=== PATIENT | male | born 1950 | race Caucasian/White ===

== ENCOUNTER → 2016-03-28 | Outpatient (CLI) | payer BC ==
[~2016-03-28] MED LIST: ASPEC81 PO; ASPI-232 PO; ATOR10TA88 PO; CHOL2000 PO; CYAN1SUB12 PO; GLC/500 PO; GLY/5 PO; MCR5 PO; METO50TA7 PO; OMEP10CA2 PO; OMEP10CA4 PO; POTA10TA PO; VALS160T60 PO
[2016-03-28 13:27] LABS: ALT/SGPT 30 U/L (12-78); BLOOD UREA NITROGEN 17 mg/dl (7-18); BUN/CREATININE RATIO 15.4 (10-20); CARBON DIOXIDE 27 mmol/L (21-32); CHLORIDE 103 mmol/L (98-107); GLUCOSE 153 mg/dl (70-99); POTASSIUM 3.9 mmol/L (3.5-5.1); SODIUM 140 mmol/L (136-145)
[2016-03-28 13:29] LABS: ALB/GLOB RATIO 1.1 (0.9-2); ALKALINE PHOSPHATASE 34 U/L (45-117); AST/SGOT 20 U/L (15-37)
[2016-03-28 13:38] LABS: ESTIMATED AVERAGE GLUCOSE 166 mg/dl; HA1C FLAG Normal (Normal)
== END | disposition home or self-care (01) ==
LOC: C.LABPVFM 07:48
PROVIDERS: ATTEND Family Medicine
DX: I10 Essential (primary) hypertension (principal); E78.5 Hyperlipidemia, unspecified; E11.65 Type 2 diabetes mellitus with hyperglycemia; R10.9 Unspecified abdominal pain; K57.30 Diverticulosis of large intestine without perforation or abscess without bleeding

== ENCOUNTER 2016-07-14 08:40 | Observation (INO) | payer BC ==
[~2016-07-14] VITALS: Ht 175.3 cm; Wt 101.7 kg
[~2016-07-14 08:40] MED LIST changes: -ASPI-232 PO; +ATOR10TA82 PO; -ATOR10TA88 PO; -GLY/5 PO; -OMEP10CA4 PO; -POTA10TA PO
[2016-07-14] MEDS ORDERED: SODIUM CHLORIDE 0.9% 1000ML 1,000 ML IV STA ×3 (08:57→10:13)
--- NOTE | 2016-07-14 08:59 | EMERGENCY ROOM VISIT NOTE ---
History Report prepared by Ana: Jacky Kelley Under the Supervision of: Dr. Terry Bynum M.D. First contact with patient: 08:50 Chief Complaint: DIARRHEA Stated Complaint: VAZQUEZ, NAUSEA, CHILLS/COLD, DIARRHEA HX: DIABETES-223 Nursing Triage Summary: pt reports after eating ice cream from [employer] last evening + NVD all night and feeling " out of it " History of Present Illness The patient is a 66 year old male who presents to the Emergency Room with complaints of persistent diarrhea since last night. The patient has also been vomiting. He complains of headache and was having "delirious dreams." He denies cough, shortness of breath, urinary symptoms or blood in his stools. He is not currently nauseous. The patient had ice cream from [employer] last night prior to the onset of his symptoms. His also had ice cream from the dairy but she had a different flavor. The patient is diabetic and his BSG was 223 when he got up this morning. He notes that his blood pressure usually runs in the 120's systolically. The patient is not on any blood thinners other than baby aspirin. Source of History: patient Onset: last night Position: other (GI) Quality: other (diarrhea) Timing: other (persistent) Associated Symptoms: + headache, + vomiting, No SOB, No cough, No hematochezia, No melena, No urinary symptoms Review of Systems See HPI for pertinent positives & negatives. A total of 10 systems reviewed and were otherwise negative. Past Medical & Surgical Medical Problems: (1) Diarrhea (2) Type II diabetes mellitus Surgical Problems: (1) S/P appendectomy Family History Diabetes mellitus FHx: heart disease Hypertension Social History Smoking Status: Never Smoker Marital Status: Housing Status: lives with family Current/Historical Medications Scheduled Aspirin (Aspir-81), 1 TAB PO DAILY Atorvastatin (Lipitor), 10 MG PO HS Cholecalciferol (Vitamin D3), 1 CAP PO QAM Cyanocobalamin (Vitamin B-12), 2,500 MG PO Q2D Glyburide (Diabeta), 10 MG PO BID Metformin Hcl (Glucophage), 1,000 MG PO BID Metoprolol Succ (Toprol Xl) (Toprol-Xl), 50 MG PO QAM Omeprazole (Prilosec), 10 MG PO QAM Valsartan/Hctz (Diovan Hct 160MG/25MG), 1 TAB PO QAM Allergies Coded Allergies: No Known Allergies (Unverified , 07/14/16) Physical Exam Vital Signs Date Time Temp Pulse Resp B/P Pulse Ox O2 Delivery O2 Flow Rate FiO2 07/14/16 10:09 106 18 126/67 93 Room Air 07/14/16 08:46 37.1 118 20 149/82 98 Room Air Physical Exam GENERAL: Patient is dehydrated appearing in mild distress. HEENT: No acute trauma, normocephalic atraumatic, mucous membranes are dry, no nasal congestion, no scleral icterus. NECK: No stridor, no adenopathy, no meningismus, trachea is midline. LUNGS: No dyspnea. Clear to auscultation and equal bilaterally. No wheeze, no rhonchi. HEART: Tachycardic, regular rhythm. No murmurs, rubs, gallops appreciated. ABDOMEN: Soft, nontender, bowel sounds mildly hyperactive, no masses appreciated , no peritonitis. BACK: No midline tenderness, no CVA tenderness EXTREMITIES: Normal motion all extremities, no cyanosis, no edema. NEUROLOGIC: Alert and oriented, no acute motor or sensory deficits, no focal weakness, cranial nerves grossly intact. SKIN: No rash, no jaundice, no diaphoresis. Poor turgor. Medical Decision & Procedures ER Provider Diagnostic Interpretation: X ray results are stated below per my interpretation and the radiologist's interpretation. Radiology results and stated below per my review and radiologist interpretation: SINGLE VIEW CHEST CLINICAL HISTORY: Generalized weakness. Hypotension. FINDINGS: An AP, portable, upright chest radiograph is compared to study dated 04/30/2006 and correlated with chest CT dated 06/18/2006. The examination is degraded by portable technique and patient rotation. The heart is top normal for projection. The mediastinal contour is within normal limits. There is mild bibasilar atelectasis and elevation of the left hemidiaphragm. No airspace consolidation or large pleural effusion is seen. No pneumothorax is identified. The bony thorax is grossly intact. IMPRESSION: No acute cardiopulmonary abnormality. Electronically signed by: Frederick Caldera M.D. 07/14/2016 9:26 AM Dictated Date/Time: 07/14/2016 9:[address] SCAN OF THE BRAIN WITHOUT IV CONTRAST CLINICAL HISTORY: Headache. Change in mental status. COMPARISON STUDY: CT of the brain dated to. TECHNIQUE: Unenhanced axial CT scan of the brain is performed from the vertex to the skull base. CT DOSE: 687.98 mGy.cm FINDINGS: Brain parenchyma: There are age-related involutional changes noting minimal subcortical and periventricular microangiopathic change. There is no hemorrhage, mass effect, or evidence of acute territorial ischemia by CT criteria. Cade-white matter is preserved. No extra-axial fluid collection is seen. Ventricles, sulci, cisterns: Prominent secondary to involutional change. Intracranial vasculature: There is mild atherosclerotic calcification of the cavernous carotid and vertebral arteries. Calvarium: Unremarkable. Sinuses and mastoids: The visualized paranasal sinuses are clear. The mastoid air cells are well pneumatized. Orbits: The bony orbits are grossly intact. IMPRESSION: There is no hemorrhage, mass effect, or evidence of acute territorial ischemia by CT criteria. Electronically signed by: Frederick Caldera M.D. 07/14/2016 9:44 AM Dictated Date/Time: 07/14/2016 9:42 AM Laboratory Results 07/14/16 09:00 Red Blood Count 4.55, Mean Corpuscular Volume 93.6, Mean Corpuscular Hemoglobin 32.5, Mean Corpuscular Hemoglobin Concent 34.7, Mean Platelet Volume 10.9, Neutrophils (%) (Auto) 84.9, Lymphocytes (%) (Auto) 4.7, Monocytes (%) (Auto) 10.1, Eosinophils (%) (Auto) 0.0, Basophils (%) (Auto) 0.1, Neutrophils # (Auto ) 7.19, Lymphocytes # (Auto) 0.40, Monocytes # (Auto) 0.86, Eosinophils # (Auto ) 0.00, Basophils # (Auto) 0.01 07/14/16 09:00 Test 07/14/16 09:00 07/14/16 09:05 07/14/16 10:00 White Blood Count 8.48 K/uL (4.8-10.8) Red Blood Count 4.55 M/uL (4.7-6.1) Hemoglobin 14.8 g/dL (14.0-18.0) Hematocrit 42.6 % (42-52) Mean Corpuscular Volume 93.6 fL (80-100) Mean Corpuscular Hemoglobin 32.5 pg (25-34) Mean Corpuscular Hemoglobin Concent 34.7 g/dl (32-36) Platelet Count 152 K/uL (130-400) Mean Platelet Volume 10.9 fL (7.4-10.4) Neutrophils (%) (Auto) 84.9 % Lymphocytes (%) (Auto) 4.7 % Monocytes (%) (Auto) 10.1 % Eosinophils (%) (Auto) 0.0 % Basophils (%) (Auto) 0.1 % Neutrophils # (Auto) 7.19 K/uL (1.4-6.5) Lymphocytes # (Auto) 0.40 K/uL (1.2-3.4) Monocytes # (Auto) 0.86 K/uL (0.11-0.59) Eosinophils # (Auto) 0.00 K/uL (0-0.5) Basophils # (Auto) 0.01 K/uL (0-0.2) RDW Standard Deviation 44.7 fL (36.4-46.3) RDW Coefficient of Variation 13.1 % (11.5-14.5) Immature Granulocyte % (Auto) 0.2 % Immature Granulocyte # (Auto) 0.02 K/uL (0.00-0.02) Anion Gap 12.0 mmol/L (3-11) Est Creatinine Clear Calc Drug Dose 76.0 ml/min Estimated GFR () 80.1 Estimated GFR (Non- 69.1 BUN/Creatinine Ratio 12.2 (10-20) Calcium Level 8.4 mg/dl (8.5-10.1) Magnesium Level 1.6 mg/dl (1.8-2.4) Total Bilirubin 0.7 mg/dl (0.2-1) Direct Bilirubin 0.2 mg/dl (0-0.2) Aspartate Amino Transf (AST/SGOT) 28 U/L (15-37) Alanine Aminotransferase (ALT/SGPT) 51 U/L (12-78) Alkaline Phosphatase 39 U/L (45-117) Total Creatine Kinase 108 U/L (39-308) Troponin I < 0.015 ng/ml (0-0.045) C-Reactive Protein 4.53 mg/dl (0-0.29) Total Protein 8.1 gm/dl (6.4-8.2) Albumin 4.1 gm/dl (3.4-5.0) Lipase 195 U/L (73-393) Procalcitonin 0.17 ng/ml (0-0.5) Bedside Lactic Acid Venous 3.01 mmol/L (0.90-1.70) Urine Color YELLOW Urine Appearance CLEAR (CLEAR) Urine pH 5.0 (4.5-7.5) Urine Specific [place] 1.022 (1.000-1.030) Urine Protein NEG (NEG) Urine Glucose (UA) 1+ (NEG) Urine Ketones 1+ (NEG) Urine Occult Blood NEG (NEG) Urine Nitrite NEG (NEG) Urine Bilirubin NEG (NEG) Urine Urobilinogen NEG (NEG) Urine Leukocyte Esterase NEG (NEG) Urine WBC (Auto) 1-5 /hpf (0-5) Urine RBC (Auto) 0-4 /hpf (0-4) Urine Hyaline Casts (Auto) 1-5 /lpf (0-5) Urine Epithelial Cells (Auto) 10-20 /lpf (0-5) Urine Bacteria (Auto) NEG (NEG) Laboratory results as reviewed by me. Medications Administered Medications (Trade) Dose Ordered Sig/June Route Start Time Stop Time Status Last Admin Dose Admin Sodium Chloride 1,000 ml @ 999 mls/hr Q1H1M STAT IV 07/14/16 08:57 07/14/16 09:57 DC 07/14/16 08:57 999 MLS/HR Sodium Chloride 1,000 ml @ 999 mls/hr Q1H1M STAT IV 07/14/16 09:08 07/14/16 10:08 DC 07/14/16 09:08 999 MLS/HR Sodium Chloride (Nss 1000ml) 1,000 ml @ 250 mls/hr Q4H STAT IV 07/14/16 10:13 07/14/16 14:12 DC 07/14/16 10:24 250 MLS/HR Magnesium Sulfate (Magnesium Sulfate) 1 gm NOW STAT IV 07/14/16 10:48 07/14/16 11:45 DC 07/14/16 12:13 1 GM ECG Indication: tachycardia Rate (beats per minute): 113 Rhythm: sinus tachycardia Findings: no acute ischemic change, no ectopy ED Course 0855: The patient was evaluated in room B3b. A complete history and physical exam was performed. 0857: NSS 1000 ml @ 999 mls/hr. 0908: NSS 1000 ml @ 999 mls/hr. 1000: The patient is feeling better at this time. 1008: The patient still feels lightheaded. He is agreeable to staying in the hospital. 1013: NSS 1000 ml @ 250 mls/hr. 1031: Discussed the case with MIRANDA Layne Hospitalist. The patient will be evaluated. Medical Decision Differential: Viral, Bacterial, Parasitic, Iatrogenic, C-Diff, Malabsorption, Irritable Bowel Disease, IBS, Ischemic Bowel, amongst other pathologies entertained. 66 yr old male arrives with diarrhea, lightheadedness and fatigue. Tachycardic and moderately ill appearing and clearly dehydrated on arrival. Afebrile without WBC elevation. He does have elevated Lactic Acid. CRP modestly elevated. Procalcitonin on low side. I do not feel he is septic. I feel he is lactic acidosis for severe dehydration with diarrhea. He is persistently tachycardic after 2 L NSS though is feeling a bit better. With persistent tachycardia, lab findings and his examination I do not feel he is well enough for discharge, and family/pt agree he should stay. Consults Time Called: 1025 Consulting Physician: Discussed the case with MIRANDA Layne Hospitalist. Returned Call: 1031 The patient will be evaluated. Impression Primary Impression: Dehydration Additional Impressions: Lactic acidosis Tachycardia Diarrhea Scribe Attestation The scribe's documentation has been prepared under my direction and personally reviewed by me in its entirety. I confirm that the note above accurately reflects all work, treatment, procedures, and medical decision making performed by me. Departure Information Dispostion Being Evaluated By Hospitalist Referrals Jenny Long M.D. (PCP) Patient Instructions My [facility] Problem Qualifiers
[2016-07-14 09:21] LABS: BASO % 0.1 %; BASO ABS # 0.01 K/uL (0-0.2); COMPLETE YES; HEMATOCRIT 42.6 % (42-52); IG% 0.2 %; LYMPH % 4.7 %; MEAN CELL VOLUME 93.6 fL (80-100); MEAN CORPUSCULAR HEMOGLOBIN 32.5 pg (25-34); MEAN CORPUSCULAR HGB CONC 34.7 g/dl (32-36); MEAN PLATELET VOLUME 10.9 fL (7.4-10.4); MONO % 10.1 %; NEUT % 84.9 %; PLATELET COUNT 152 K/uL (130-400); RED BLOOD COUNT 4.55 M/uL (4.7-6.1); WHITE BLOOD COUNT 8.48 K/uL (4.8-10.8)
--- NOTE | 2016-07-14 09:28 | DIAGNOSTIC IMAGING REPORT ---
SINGLE VIEW CHEST CLINICAL HISTORY: Generalized weakness. Hypotension. FINDINGS: An AP, portable, upright chest radiograph is compared to study dated 04/30/2006 and correlated with chest CT dated 06/18/2006. The examination is degraded by portable technique and patient rotation. The heart is top normal for projection. The mediastinal contour is within normal limits. There is mild bibasilar atelectasis and elevation of the left hemidiaphragm. No airspace consolidation or large pleural effusion is seen. No pneumothorax is identified. The bony thorax is grossly intact. IMPRESSION: No acute cardiopulmonary abnormality. Electronically signed by: Frederick Caldera M.D. 07/14/2016 9:26 AM Dictated Date/Time: 07/14/2016 9:25 AM
[2016-07-14 09:36] LABS: ALT/SGPT 51 U/L (12-78); AST/SGOT 28 U/L (15-37); BLOOD UREA NITROGEN 13 mg/dl (7-18); BUN/CREATININE RATIO 12.2 (10-20); CALCIUM 8.4 mg/dl (8.5-10.1); CARBON DIOXIDE 25 mmol/L (21-32); CHLORIDE 100 mmol/L (98-107); GLUCOSE 206 mg/dl (70-99); MAGNESIUM 1.6 mg/dl (1.8-2.4); POTASSIUM 3.6 mmol/L (3.5-5.1); SODIUM 137 mmol/L (136-145)
[2016-07-14 09:39] LABS: ALKALINE PHOSPHATASE 39 U/L (45-117)
--- NOTE | 2016-07-14 09:46 | DIAGNOSTIC IMAGING REPORT ---
CT SCAN OF THE BRAIN WITHOUT IV CONTRAST CLINICAL HISTORY: Headache. Change in mental status. COMPARISON STUDY: CT of the brain dated to. TECHNIQUE: Unenhanced axial CT scan of the brain is performed from the vertex to the skull base. CT DOSE: 687.98 mGy.cm FINDINGS: Brain parenchyma: There are age-related involutional changes noting minimal subcortical and periventricular microangiopathic change. There is no hemorrhage, mass effect, or evidence of acute territorial ischemia by CT criteria. Cade-white matter is preserved. No extra-axial fluid collection is seen. Ventricles, sulci, cisterns: Prominent secondary to involutional change. Intracranial vasculature: There is mild atherosclerotic calcification of the cavernous carotid and vertebral arteries. Calvarium: Unremarkable. Sinuses and mastoids: The visualized paranasal sinuses are clear. The mastoid air cells are well pneumatized. Orbits: The bony orbits are grossly intact. IMPRESSION: There is no hemorrhage, mass effect, or evidence of acute territorial ischemia by CT criteria. Electronically signed by: Frdeerick Caldera M.D. 07/14/2016 9:44 AM Dictated Date/Time: 07/14/2016 9:42 AM
[2016-07-14] MEDS ORDERED: OMEP10CA4 PO (09:47)
[2016-07-14] MEDS ORDERED: ASPI-232 PO (09:47)
[2016-07-14] MEDS ORDERED: GLY/5 PO (09:47)
[2016-07-14 10:29] LABS: URINE APPEARANCE CLEAR (CLEAR); URINE BILIRUBIN NEG (NEG); URINE COLOR YELLOW; URINE NITRITE NEG (NEG); URINE SPECIFIC GRAVITY 1.022 (1.000-1.030); UROBILINOGEN NEG (NEG); ZZUR CULT IF INDIC CLEAN CATCH NO
[2016-07-14 10:35] LABS: MANUAL MICROSCOPIC REQUIRED? NO; REVIEW REQ? NO
[2016-07-14] MEDS ORDERED: MAGNESIUM SULFATE 1GM / D5W 1 GM BAG IV STA (10:48)
[2016-07-14] MEDS ORDERED: MAGNESIUM HYDROXIDE SUSP 30 ML UDC PO PRN (11:00)
[2016-07-14] MEDS ORDERED: GLUCOSE 40% GEL 15 GM TUBE PO PRN (11:00)
[2016-07-14] MEDS ORDERED: DEXTROSE 50% 50 ML SYR IV PRN (11:00)
[2016-07-14] MEDS ORDERED: GLUCOSE 10 TABS/TUBE PO PRN (11:00)
[2016-07-14] MEDS ORDERED: GLUCAGON FOR INJ 1 MG VIAL SQ PRN (11:00)
--- NOTE | 2016-07-14 11:04 | History and Physical ---
History & Physical Date & Time of Service: July 14, 2016 at 10:53 Chief Complaint: Pierre, Nausea, Chills/Cold, Diarrhea Hx: Diabetes-223 Primary Care Physician: Jenny Long M.D. History of Present Illness Source: patient 66 y/o M c/o n/d. Pt states he was having a usual day for himself yesterday. He felt quite well. He and his had been at the grocery and stopped for ice cream on their way home at [employer]. By the time pt was getting into the car he started having intense nausea with gagging but no emesis. By the time they were home he started to have "projectile" diarrhea which persisted all night. His said he felt warm, but no fever. She also said that he was hallucinating. Pt states that he had abd cramping with the diarrhea episodes, but no tyson abd pain. He could not get comfortable all night and barely slept. He feels very weak right now. No hx of similar GI issues. He takes a baby aspirin, but has not noted any blood in his stool. He started having a headache this AM. He has not been able to eat since onset of sx. He admits to feeling bloated. Pt's also had ice cream, but a different flavor. She has no GI issues. Pt is feeling a bit better s/p IVF in the ED, "about 15% better". Headache is still present. Nausea is improved, but still present. He is thirsty. Pt denies fever, SOB, chest pain, LE pain or swelling. ROS as noted above, otherwise neg. Past Medical/Surgical History Medical Problems: (1) Type II diabetes mellitus Status: Chronic Surgical Problems: (1) S/P appendectomy Status: Resolved HTN GERD--weaning off of PPI HLD Family History Family history was reviewed; no changes noted. Social History Smoking Status: Never Smoker Alcohol Use: none Drug Use: none Marital Status: Multi-Drug Resistant Organisms History of MDRO: No Allergies Coded Allergies: No Known Allergies (Unverified , 07/14/16) Home Medications Scheduled Aspirin (Aspir-81), 1 TAB PO DAILY Atorvastatin (Lipitor), 10 MG PO HS Cholecalciferol (Vitamin D3), 1 CAP PO QAM Cyanocobalamin (Vitamin B-12), 2,500 MG PO Q2D Glyburide (Diabeta), 10 MG PO BID Metformin Hcl (Glucophage), 1,000 MG PO BID Metoprolol Succ (Toprol Xl) (Toprol-Xl), 50 MG PO QAM Omeprazole (Prilosec), 10 MG PO QAM Valsartan/Hctz (Diovan Hct 160MG/25MG), 1 TAB PO QAM Physical Exam Vital Signs Date Time Temp Pulse Resp B/P Pulse Ox O2 Delivery O2 Flow Rate FiO2 07/14/16 10:09 106 18 126/67 93 Room Air 07/14/16 08:46 37.1 118 20 149/82 98 Room Air General Appearance: no apparent distress, + obese Head: normocephalic, atraumatic Respiratory/Chest: normal breath sounds, no respiratory distress Cardiovascular: no edema, + tachycardia Abdomen/GI: non tender, soft, + distended Extremities/Musculoskelatal: no calf tenderness, no pedal edema Neurologic/Psych: alert, normal mood/affect Skin: normal color, warm/dry Diagnostics Laboratory Results Results Past 24 Hours Test 07/14/16 09:00 07/14/16 09:05 07/14/16 10:00 Range/Units White Blood Count 8.48 4.8-10.8 K/uL Red Blood Count 4.55 4.7-6.1 M/uL Hemoglobin 14.8 14.0-18.0 g/dL Hematocrit 42.6 42-52 % Mean Corpuscular Volume 93.6 80-100 fL Mean Corpuscular Hemoglobin 32.5 25-34 pg Mean Corpuscular Hemoglobin Concent 34.7 32-36 g/dl Platelet Count 152 130-400 K/uL Mean Platelet Volume 10.9 7.4-10.4 fL Neutrophils (%) (Auto) 84.9 % Lymphocytes (%) (Auto) 4.7 % Monocytes (%) (Auto) 10.1 % Eosinophils (%) (Auto) 0.0 % Basophils (%) (Auto) 0.1 % Neutrophils # (Auto) 7.19 1.4-6.5 K/uL Lymphocytes # (Auto) 0.40 1.2-3.4 K/uL Monocytes # (Auto) 0.86 0.11-0.59 K/uL Eosinophils # (Auto) 0.00 0-0.5 K/uL Basophils # (Auto) 0.01 0-0.2 K/uL RDW Standard Deviation 44.7 36.4-46.3 fL RDW Coefficient of Variation 13.1 11.5-14.5 % Immature Granulocyte % (Auto) 0.2 % Immature Granulocyte # (Auto) 0.02 0.00-0.02 K/uL Sodium Level 137 136-145 mmol/L Potassium Level 3.6 3.5-5.1 mmol/L Chloride Level 100 98-107 mmol/L Carbon Dioxide Level 25 21-32 mmol/L Anion Gap 12.0 3-11 mmol/L Blood Urea Nitrogen 13 7-18 mg/dl Creatinine 1.10 0.60-1.40 mg/dl Est Creatinine Clear Calc Drug Dose 76.0 ml/min Estimated GFR () 80.1 Estimated GFR (Non- 69.1 BUN/Creatinine Ratio 12.2 10-20 Random Glucose 206 70-99 mg/dl Calcium Level 8.4 8.5-10.1 mg/dl Magnesium Level 1.6 1.8-2.4 mg/dl Total Bilirubin 0.7 0.2-1 mg/dl Direct Bilirubin 0.2 0-0.2 mg/dl Aspartate Amino Transf (AST/SGOT) 28 15-37 U/L Alanine Aminotransferase (ALT/SGPT) 51 12-78 U/L Alkaline Phosphatase 39 45-117 U/L Total Creatine Kinase 108 39-308 U/L Troponin I < 0.015 0-0.045 ng/ml C-Reactive Protein 4.53 0-0.29 mg/dl Total Protein 8.1 6.4-8.2 gm/dl Albumin 4.1 3.4-5.0 gm/dl Lipase 195 73-393 U/L Procalcitonin 0.17 0-0.5 ng/ml Bedside Lactic Acid Venous 3.01 0.90-1.70 mmol/L Urine Color YELLOW Urine Appearance CLEAR CLEAR Urine pH 5.0 4.5-7.5 Urine Specific [place] 1.022 1.000-1.030 Urine Protein NEG NEG Urine Glucose (UA) 1+ NEG Urine Ketones 1+ NEG Urine Occult Blood NEG NEG Urine Nitrite NEG NEG Urine Bilirubin NEG NEG Urine Urobilinogen NEG NEG Urine Leukocyte Esterase NEG NEG Urine WBC (Auto) 1-5 0-5 /hpf Urine RBC (Auto) 0-4 0-4 /hpf Urine Hyaline Casts (Auto) 1-5 0-5 /lpf Urine Epithelial Cells (Auto) 10-20 0-5 /lpf Urine Bacteria (Auto) NEG NEG Microbiology Results 07/14/16 Blood Culture, Received Pending 07/14/16 Blood Culture, Received Pending Diagnostic Radiology CT head neg for acute CXR normal Impression Assessment and Plan 66 y/o M who was admitted for observation for diarrhea, dehydration diarrhea, dehydration: Likely acute viral GE due to food born pathogen given onset and timing Tachycardia has improved s/p IVF but still borderline in the low 100s WBC WNL, afebrile, BP is stable PRP WNL, Mg is low c/w diarrheal illness Stool and blood cx pending Tele monitoring given tachycardia Will hold on abx for now given likely viral illness Lactic acid elevated, repeat pending HypoMg: replace IV and monitor DM: Holding PO meds given decreased PO intake SSI PRN BS elevated in setting of missing AM meds, A1c pending HTN: BP stable, continue home meds Other: Full code Avoid rx DVT proph to avoid GIB given diarrhea, avoid SCDs to allow pt to be able to get to bedside commode quickly, likely short duration of stay Full liquid diet as tolerated Level of Care Telemetry Resuscitation Status FULL RESUSCITATION VTE Prophylaxis VTE Risk Assessment Done? Y/N: Yes Risk Level: Low
[2016-07-14] MEDS: ONDANSETRON INJ 2 MG/ML 2 ML VIAL IV PRN ×2 (12:14→21:40)
[2016-07-14] MEDS: ACETAMINOPHEN 325 MG TAB PO PRN ×3 (12:48→21:41)
[2016-07-14] MEDS ORDERED: IV FLUIDS COMPLETED PRN (14:00)
[2016-07-14 14:40] VITALS: BP 149/78; PULSE 104; TEMP 37.8; O2SAT 93; Ht 175.3 cm; Wt 101.7 kg
[2016-07-14] MEDS: SODIUM CHLORIDE 0.9% 1000ML 1,000 ML IV SCH ×2 (15:31→20:56)
[2016-07-14 16:00] VITALS: O2SAT 93
[2016-07-14] MEDS: INSULIN ASPART 100 UNITS/ML 3 ML PEN SC SCH ×2 (17:28→20:55)
[2016-07-14 17:31] VITALS: TEMP 36.8; O2SAT 93
[2016-07-14 18:23] LABS: BUN/CREATININE RATIO 10.4 (10-20); CALCIUM 7.3 mg/dl (8.5-10.1); CREATININE 1.1 mg/dl (0.60-1.40); MAGNESIUM 1.8 mg/dl (1.8-2.4); POTASSIUM 3.2 mmol/L (3.5-5.1)
[2016-07-14 19:47] VITALS: BP 150/75; PULSE 102; TEMP 36.6; O2SAT 94
[2016-07-14 20:00] VITALS: O2SAT 93
[2016-07-14] MEDS ORDERED: ATORVASTATIN 10 MG TAB PO SCH (21:00)
[2016-07-15] VITALS (9 sets, daily range): BP systolic 106–165; BP diastolic 65–80; PULSE 74–101; TEMP 36.6–37; O2SAT 92–95
[2016-07-15] MEDS: SODIUM CHLORIDE 0.9% 1000ML 1,000 ML IV SCH (06:39)
[2016-07-15 07:40] LABS: BUN/CREATININE RATIO 10.8 (10-20); CALCIUM 6.9 mg/dl (8.5-10.1); MAGNESIUM 1.9 mg/dl (1.8-2.4); POTASSIUM 3.1 mmol/L (3.5-5.1)
[2016-07-15] MEDS: INSULIN ASPART 100 UNITS/ML 3 ML PEN SC SCH ×3 (08:24→16:30)
[2016-07-15] MEDS: ACETAMINOPHEN 325 MG TAB PO PRN (08:26)
[2016-07-15] MEDS ORDERED: PANTOprazole SOD 40 MG TAB PO SCH (09:00)
[2016-07-15] MEDS ORDERED: CHOLECALCIFEROL 1000 INTER.UNIT TAB PO SCH (09:00)
[2016-07-15] MEDS ORDERED: HYDROCHLOROTHIAZIDE 25 MG TAB PO SCH (09:00)
[2016-07-15] MEDS ORDERED: VALSARTAN 80 MG TAB PO SCH (09:00)
[2016-07-15] MEDS ORDERED: METOPROLOL SUCC 50MG EXT REL TAB PO SCH (09:00)
[2016-07-15] MEDS ORDERED: CYANOCOBALAMIN 2,500 MCG SUBL TAB PO SCH (09:00)
[2016-07-15] MEDS ORDERED: ASPIRIN 81 MG ECTAB PO SCH (09:00)
[2016-07-15] MEDS ORDERED: POTASSIUM CHLORIDE 20 MEQ TABCR PO SCH (09:00)
[2016-07-15] MEDS ORDERED: POTASSIUM CHLORIDE INJ 20 MEQ in SODIUM CHLORIDE 0.9% 1000ML 1,000 ML IV SCH (09:30)
[2016-07-15] MEDS ORDERED: POTA10TA PO (18:18)
--- NOTE | 2016-07-15 18:32 | Discharge Instructions ---
Discharge Instructions Date of Service July 15, 2016. Admission Reason for Admission: Diarrhea Discharge Discharge Diagnosis / Problem: gastroenteritis - either "food poisoning" or due to a virus Discharge Goals Goal(s): Decrease discomfort, Learn about illness, Diagnostic testing, Therapeutic intervention Activity Recommendations Activity Limitations: as noted below For the next 2-3 days please "take it easy" - that is, avoid heavy exertional activity such as working in the yard, heavy painter and decorator apprentice, etc. . Instructions / Follow-Up Instructions / Follow-Up From Dr. Gifford - 1. diarrhea, nausea, stomach upset - * this was either due to food poisoning from the ice cream you ingested OR a virus; bacterial infection is possible but less likely * your c. diff stool test was negative and to date a bacterial stool culture is also negative * we will call you if any of your stool tests come back positive for bacteria * I would avoid use of pepto-bismal OR immodium for the diarrhea as this might make your symptoms worsen 2. drink plenty of fluids over the next 2-3 days 3. diet - * for the next 24-36 hours please follow a "full liquids" diet * full liquids includes all clear liquids (jello, juice, water, gatorade, etc) as well as milk products (avoid cheese) * cream-based soups are also ok * after 24-36 hours you may begin to add in more solid foods such as toast, applesauce, rice, boiled chicken, soft/bland foods, etc * try to restrict caffeinated beverages (soda, tea, coffee) and alcohol for the next 3-4 days 4. diabetes - * you can resume your metformin TOMORROW morning with your breakfast * until your diet is back to normal please HOLD your glyburide; once back to normal diet you can resume the glyburide 5. high blood pressure - * please take a HALF tablet of your diovan-HCT on Saturday AM, 07/16/16 * if your diet is back to normal on Saturday/Saturday you may resume a FULL tablet of diovan-HCT at that time 6. low potassium - * start potassium supplement 10meq once daily on Saturday AM, 07/16/16 * please have your family doctor (Dr. Long) recheck your potassium and magnesium levels later this week * you may have to take a potassium supplement indefinitely due to your diovan- HCT use 7. special precautions - * until your diarrhea is fully resolved please pay special attention to strict hand-washing after using the toilet * clean your bathroom with bleach or bleach wipes * try to use a separate bathroom from your spouse until your symptoms are resolved Return to [facility] if - * you develop blood or mucous in your stool * you develop severe abdominal pain or cramps * you are unable to eat/drink/keep liquids down * you develop recurrent fevers of 100.5 or more * you are dizzy or lightheaded Follow-up Appointment - * Please see Dr. Long later this week Current Hospital Diet Patient's current hospital diet: Full Liquid Diet, Diabetes Type 2 Diet Discharge Diet Recommended Diet: Full Liquid Diet, Diabetes Type 2 Diet Procedures Procedures Performed: CAT scan of the head - no evidence of bleeding, stroke, etc. Pending Studies Studies pending at discharge: yes List of pending studies: stool culture for bacteria Laboratory Results Hemoglobin A1c Test 07/15/16 06:44 Range/Units Medical Emergencies . Who to Call and When: Medical Emergencies: If at any time you feel your situation is an emergency, please call 911 immediately. . Non-Emergent Contact Non-Emergency issues call your: Primary Care Provider Call Non-Emergent contact if: temperature is above 100.5, your pain is not controlled, your pain is worsening, your pain is unusual for you, your pain is concerning you, you have any medication questions . . "Provider Documentation" section prepared by Gucci Gifford. . VTE Core Measure Inpt VTE Proph given/why not?: SCD's
[2016-07-15 18:44] LABS: BUN/CREATININE RATIO 9.9 (10-20); CREATININE 0.95 mg/dl (0.60-1.40)
[2016-07-15 18:45] LABS: POTASSIUM 3.7 mmol/L (3.5-5.1)
[2016-07-16 07:26] LABS: ESTIMATED AVERAGE GLUCOSE 169 mg/dl; HA1C FLAG Normal (Normal)
--- NOTE | 2016-07-16 11:30 | Discharge Summary ---
Discharge Summary Date of Service July 16, 2016. Discharge Summary Admission Date: July 14, 2016 at 10:52 Discharge Date: July 15, 2016 Discharge Disposition: Home Principal Diagnosis: gastroenteritis Problems/Secondary Diagnoses: HTN T2DM Hypokalemia - resolved Hypomagnesemia - resolved Lactic acidosis 2nd to severe dehydration - resolved Hyperlipidemia Procedures: Head CT - negative for ICH, stroke, etc. Medication Reconciliation New Medications: Potassium Chloride (K-Tabs) 10 Meq Tab 10 MEQ PO DAILY, #30 TAB 0 Refills Continued Medications: Aspirin (Aspir-81) 81 Mg Tab 1 TAB PO DAILY for 30 Days, #30 TAB 5 Refills Atorvastatin (Lipitor) 10 Mg Tab 10 MG PO HS, TAB Cholecalciferol (Vitamin D3) 2,000 Unit Cap 1 CAP PO QAM, CAP 3 Refills Cyanocobalamin (Vitamin B-12) 2,500 Mcg Sub 2500 MG PO Q2D Metformin Hcl (Glucophage) 500 Mg Tab 1000 MG PO BID, TAB Metoprolol Succ (Toprol Xl) (Toprol-Xl) 50 Mg Tabcr 50 MG PO QAM, TAB Omeprazole (Prilosec) 10 Mg Cap 10 MG PO QAM, CAP Valsartan/Hctz (Diovan Hct 160MG/25MG) 1 Tab Tab 1 TAB PO QAM, TAB Discontinued Medications: Glyburide (Diabeta) 5 Mg Tab 10 MG PO BID, TAB Discharge Exam Physical Exam: General Appearance: no apparent distress ENT: pharynx normal Neck: no JVD Respiratory/Chest: lungs clear, no respiratory distress, no accessory muscle use Cardiovascular: regular rate, rhythm, no gallop, no murmur, normal peripheral pulses Abdomen / GI: non tender, soft, no organomegaly, + abnormal bowel sounds ( hyperactive) Extremities: no pedal edema Neurologic/Psychiatric: alert, oriented x 3 Hospital Course HISTORY OF PRESENT ILLNESS: 66yo male with T2DM & HTN who presented with nausea, dry heaves, and copious diarrhea. Patient states he was having a usual day for himself yesterday. He felt quite well. He and his had been at the grocery and stopped for ice cream on their way home at [employer]. By the time pt was getting into the car he started having intense nausea with gagging but no emesis. By the time they were home he started to have "projectile" diarrhea which persisted all night. His said he felt warm, but no fever. She also said that he was hallucinating. Pt states that he had abd cramping with the diarrhea episodes, but no tyson abd pain. He could not get comfortable all night and barely slept. He feels very weak right now. No hx of similar GI issues. He takes a baby aspirin, but has not noted any blood in his stool. He started having a headache this AM. He has not been able to eat since onset of sx. He admits to feeling bloated. Pt's also had ice cream, but a different flavor. She has no GI issues. Patient is feeling a bit better s/p IVF in the ED, "about 15% better". Headache is still present. Nausea is improved, but still present. He is thirsty. HOSPITAL COURSE: The patient was given supportive care measures including IV hydration and replacement of electrolyte disturbances. He was ultimately restarted on a liquid diet and tolerated this without difficulty. C. diff toxin was negative, and stool culture along with blood cultures remained negative while here. His diarrhea improved in frequency and consistency prior to discharge home. It is suspected that the etiology of his gastroenteritis was either toxin- induced (ie food poisoning) vs a viral process. Either way it is anticipated that his symptoms will resolve without intervention. At discharge the following were recommended: 1. full liquid diet for another 1-2 days, followed by gradual increase in diet thereafter as tolerated 2. plenty of fluids 3. HOLDING of his glyburide until his diet is back to normal 4. resumption of metformin within 24 hours of discharge given his stable creatinine 5. HALF of his normal diovan-HCT dose for another 1-2 days, then resuming full dose thereafter 6. potassium supplementation 10meq once daily, possibly indefinitely, due to chronic use of HCTZ He should have repeat chemistries at time of hospital follow-up. Total Time Spent: Greater than 30 minutes This includes examination of the patient, discharge planning, medication reconciliation, and communication with other providers. Discharge Instructions Please refer to the electronic Patient Visit Report (Discharge Instructions) for additional information. Follow-Up see Dr. Long within 3-5 days Additional Copies To Jenny Long M.D.
== END 2016-07-15 19:38 | disposition home or self-care (01) ==
LOC: ENRESERVTM → ENRESERVDT → C.EDB 08:42 → C.MED 10:52
PROVIDERS: ADMIT Family Medicine; ATTEND Internal Medicine
DX: E86.0 Dehydration (principal); E87.2 Acidosis; K52.9 Noninfective gastroenteritis and colitis, unspecified; K21.9 Gastro-esophageal reflux disease without esophagitis; I10 Essential (primary) hypertension; E11.9 Type 2 diabetes mellitus without complications; E87.6 Hypokalemia; E83.42 Hypomagnesemia; E78.5 Hyperlipidemia, unspecified; Z79.82 Long term (current) use of aspirin; Z90.49 Acquired absence of other specified parts of digestive tract; Z82.49 Family history of ischemic heart disease and other diseases of the circulatory system; Z83.3 Family history of diabetes mellitus

== ENCOUNTER → 2016-07-20 | Outpatient (CLI) | payer BC ==
[~2016-07-20] MED LIST changes: -ASPEC81 PO; +ASPI-232 PO; -MCR5 PO; -OMEP10CA2 PO; +OMEP10CA4 PO; +POTA10TA PO
[2016-07-20 12:49] LABS: ALT/SGPT 39 U/L (12-78); AST/SGOT 24 U/L (15-37); BLOOD UREA NITROGEN 12 mg/dl (7-18); BUN/CREATININE RATIO 11.8 (10-20); CALCIUM 9.3 mg/dl (8.5-10.1); CARBON DIOXIDE 32 mmol/L (21-32); CHLORIDE 105 mmol/L (98-107); GLUCOSE 154 mg/dl (70-99); POTASSIUM 4.1 mmol/L (3.5-5.1); SODIUM 143 mmol/L (136-145)
[2016-07-20 12:52] LABS: ALB/GLOB RATIO 0.9 (0.9-2); ALKALINE PHOSPHATASE 33 U/L (45-117); CHOLESTEROL 76 mg/dl (0-200); CHOLESTEROL/HDL RATIO 2.4; ESTIMATED AVERAGE GLUCOSE 171 mg/dl; HA1C FLAG Normal (Normal); HDL CHOLESTEROL 32 mg/dl; LDL CHOLESTEROL CALCULATED 12 mg/dl; TRIGLYCERIDES 162 mg/dl (0-150); VERY LOW DENSITY LIPOPROT CALC 32 mg/dl
== END | disposition home or self-care (01) ==
LOC: C.LABPVFM 08:08
PROVIDERS: ATTEND Family Medicine
DX: I10 Essential (primary) hypertension (principal); E11.9 Type 2 diabetes mellitus without complications; E66.9 Obesity, unspecified; E78.5 Hyperlipidemia, unspecified; E83.42 Hypomagnesemia

== ENCOUNTER → 2016-10-05 | Outpatient (CLI) | payer BC ==
[~2016-10-05] MED LIST changes: -ATOR10TA82 PO; +ATOR10TA88 PO
[2016-10-05 13:01] LABS: ALT/SGPT 38 U/L (12-78); AST/SGOT 24 U/L (15-37); BLOOD UREA NITROGEN 15 mg/dl (7-18); BUN/CREATININE RATIO 15.3 (10-20); CALCIUM 9.1 mg/dl (8.5-10.1); CARBON DIOXIDE 29 mmol/L (21-32); CHLORIDE 104 mmol/L (98-107); GLUCOSE 170 mg/dl (70-99); POTASSIUM 4.1 mmol/L (3.5-5.1); SODIUM 139 mmol/L (136-145)
[2016-10-05 13:03] LABS: ALB/GLOB RATIO 1.2 (0.9-2); ALKALINE PHOSPHATASE 31 U/L (45-117)
== END | disposition home or self-care (01) ==
LOC: C.LABPVFM 07:36
PROVIDERS: ATTEND Family Medicine
DX: I10 Essential (primary) hypertension (principal); K52.9 Noninfective gastroenteritis and colitis, unspecified; E11.65 Type 2 diabetes mellitus with hyperglycemia; E87.6 Hypokalemia

== ENCOUNTER → 2017-01-15 | Outpatient (CLI) | payer BC ==
[~2017-01-15] MED LIST changes: +ATOR10TA82 PO; -ATOR10TA88 PO
[2017-01-15 13:40] LABS: ESTIMATED AVERAGE GLUCOSE 166 mg/dl; HA1C FLAG Normal (Normal)
[2017-01-15 14:14] LABS: ALT/SGPT 43 U/L (12-78); BLOOD UREA NITROGEN 17 mg/dl (7-18); CALCIUM 9.8 mg/dl (8.5-10.1); CARBON DIOXIDE 27 mmol/L (21-32); CHLORIDE 101 mmol/L (98-107); CREATININE 1.12 mg/dl (0.60-1.40); GLUCOSE 182 mg/dl (70-99); POTASSIUM 4.1 mmol/L (3.5-5.1); SODIUM 137 mmol/L (136-145)
[2017-01-15 14:17] LABS: ALB/GLOB RATIO 1.1 (0.9-2); ALKALINE PHOSPHATASE 36 U/L (45-117); AST/SGOT 28 U/L (15-37)
== END | disposition home or self-care (01) ==
LOC: C.LABPVFM 07:37
PROVIDERS: ATTEND Family Medicine
DX: E11.65 Type 2 diabetes mellitus with hyperglycemia (principal)

== ENCOUNTER → 2017-05-06 | Outpatient (CLI) | payer BC ==
[~2017-05-06] MED LIST changes: -METO50TA7 PO; +METO50TA8 PO
[2017-05-06 13:21] LABS: HEMOGLOBIN A1C 7.5 % (4.5-5.6)
[2017-05-06 14:09] LABS: ALBUMIN 3.9 gm/dl (3.4-5.0); ALT/SGPT 43 U/L (12-78); AST/SGOT 27 U/L (15-37); BLOOD UREA NITROGEN 16 mg/dl (7-18); CARBON DIOXIDE 26 mmol/L (21-32); CHOLESTEROL 119 mg/dl (0-200); CREATININE 1.06 mg/dl (0.60-1.40); GLUCOSE 168 mg/dl (70-99); POTASSIUM 3.9 mmol/L (3.5-5.1); SODIUM 139 mmol/L (136-145)
[2017-05-06 14:12] LABS: ALKALINE PHOSPHATASE 36 U/L (45-117); LDL CHOLESTEROL CALCULATED 27 mg/dl; TOTAL PROTEIN 7.5 gm/dl (6.4-8.2)
== END | disposition home or self-care (01) ==
LOC: C.LABPVFM 07:48
PROVIDERS: ATTEND Family Medicine
DX: I10 Essential (primary) hypertension (principal); E11.65 Type 2 diabetes mellitus with hyperglycemia; T14.8XXA Other injury of unspecified body region, initial encounter; X58.XXXA Exposure to other specified factors, initial encounter; M54.2 Cervicalgia

== ENCOUNTER → 2017-05-28 | Outpatient (CLI) | payer BC ==
--- NOTE | 2017-05-28 12:41 | DIAGNOSTIC IMAGING REPORT ---
ABDOMEN COMPLETE (US) CLINICAL HISTORY: 67 years-old Male presenting with ABDOMINAL DISCOMFORT. TECHNIQUE: Real-time grayscale and limited color Doppler ultrasound imaging of the abdomen was performed. COMPARISON: 01/12/2013. FINDINGS: Pancreas: Largely obscured due to overlying bowel gas. Liver: Markedly hyperechogenic parenchyma with obscuration of the right hemidiaphragm, likely indicating marked hepatic steatosis. The liver measures 21.2 cm in maximal sagittal dimension. No sonographic evidence of hepatic mass. Main portal vein patent with normal directional flow. Biliary: No intrahepatic biliary ductal dilatation. Common bile duct measures up to 5 mm in diameter. Gallbladder: No evidence of gallstones, gallbladder wall thickening, gallbladder distention, or pericholecystic fluid or inflammatory change. Spleen: Normal in echogenicity and size, measuring 11.4 cm in length. Kidneys: Normal in size and echogenicity. Right kidney measures 11.6 cm, and left kidney measures 11.3 cm. No hydronephrosis. Vasculature: Visualized portions of the IVC and abdominal aorta normal. No evidence of abdominal aortic aneurysm. Ascites: None. IMPRESSION: Hepatic steatosis and hepatomegaly. Correlate with liver function tests to exclude steatohepatitis as a cause for abdominal pain. Electronically signed by: Job Barrios M.D. 05/28/2017 12:39 PM Dictated Date/Time: 05/28/2017 12:38 PM
== END | disposition home or self-care (01) ==
LOC: C.ULTR 11:54
PROVIDERS: ATTEND Family Medicine
DX: R10.9 Unspecified abdominal pain (principal); K76.0 Fatty (change of) liver, not elsewhere classified; R16.0 Hepatomegaly, not elsewhere classified

== ENCOUNTER → 2017-06-03 | Outpatient (CLI) | payer BC ==
--- NOTE | 2017-06-03 11:19 | DIAGNOSTIC IMAGING REPORT ---
CHEST 2 VIEWS ROUTINE CLINICAL HISTORY: R91.1 Pulmonary nodule, [id number] nodule COMPARISON STUDY: 07/14/2016 FINDINGS: Mild stable cardiomegaly. Diaphragms are smooth. Lungs are considered clear. No significant pulmonary nodule IMPRESSION: Negative chest. The above report was generated using voice recognition software. It may contain grammatical, syntax or spelling errors. Electronically signed by: Ricco Espion M.D. 06/03/2017 11:18 AM Dictated Date/Time: 06/03/2017 11:16 AM
== END | disposition home or self-care (01) ==
LOC: C.RAD1850 11:06
PROVIDERS: ATTEND Physician Assistant
DX: R91.1 Solitary pulmonary nodule (principal)

== ENCOUNTER 2020-01-19 14:33 | Observation (INO) ==
[2020-01-19] MEDS ORDERED: SODIUM CHLORIDE 0.9% 1000ML 1,000 ML IV ONE (15:03)
--- NOTE | 2020-01-19 15:14 | Emergency Department Note ---
History of Present Illness General Chief complaint: Neck Injury/Pain Stated complaint: TROUBLE SWALLOWING,EARACHE,FEVER Time Seen by Provider: 01/19/20 14:48 History of Present Illness Maximum Pain Intensity: 6 69-year-old male who presents to the emergency department for evaluation of neck pain, fullness, difficulty swallowing, bilateral earache and low-grade fever. The patient reports that he underwent a thyroid needle biopsy last Saturday by Dr. Gill at [facility]. The patient reports that he did have some discomfort and Saturday. It started to worsen Saturday into Saturday to the point that he was unable to swallow yesterday. He has also noticed some lupe n radiating to both ears, as well as a mild headache. The patient reports that his temperature has been ranging between 98.6 and 99.5 F. The patient reports that the pain is "from outside pushing in - not pain from the inside of the neck or throat." The patient has noticed some mild lower neck swelling that is mildly tender to palpation, but soft and pliable. He currently denies any dental pain, recent upper respiratory infections, cough or sore throat. The patient denies any pain radiating into the chest, or shortness of breath. The patient did take some ibuprofen 2 hours prior to arrival, and currently rates his discomfort a 6 out of 10. Home Medications Medication Instructions Recorded Confirmed Type metoprolol succinate 50 mg See Rx Instructions .ROUTE 10/29/18 08/04/19 Rx tablet,extended release 24 hr .COMPLEX #90 tablet losartan 100 mg tablet 100 mg PO DAILY #90 tab 11/10/18 08/04/19 Rx aspirin 81 mg tablet,delayed 81 mg PO DAILY tab 11/25/18 08/04/19 History release indomethacin 25 mg capsule 25 mg PO TID PRN #30 cap 11/25/18 08/04/19 History pen needle, diabetic 32 gauge x See Rx Instructions .ROUTE 12/29/18 08/04/19 Rx 5/32" .COMPLEX #100 unspecified lancets #100 ea 12/30/18 08/04/19 Rx metformin 500 mg tablet,extended See Rx Instructions .ROUTE 02/20/19 08/04/19 Rx release 24 hr .COMPLEX #360 tablet CPAP Machine #1 ea 04/23/19 08/04/19 Rx cholecalciferol (vitamin D3) 50 2,000 units PO DAILY 04/23/19 08/04/19 History mcg (2,000 unit) capsule chlorthalidone 25 mg tablet 25 mg PO DAILY #90 tab 04/24/19 08/04/19 Rx glipizide 10 mg tablet, extended 10 mg PO BID #60 tab 05/11/19 08/04/19 Rx release 24 hr atorvastatin 10 mg tablet 10 mg PO DAILY #90 tab 06/22/19 08/04/19 Rx prednisone 50 mg tablet 50 mg PO DAILY #5 tab 08/04/19 08/04/19 Rx insulin glargine U-300 conc 300 See Rx Instructions .ROUTE 08/10/19 Rx unit/mL (1.5 mL) subcutaneous pen .COMPLEX #4.5 milliliter omeprazole 20 mg capsule,delayed 20 mg PO DAILY #90 cap 08/10/19 Rx release hydrocodone-acetaminophen [Ashton] 1 tab PO Q6H PRN #12 tab 10/15/19 Rx blood sugar diagnostic #300 ea 11/05/19 Rx Allergies Allergy/AdvReac Type Severity Reaction Status Date / Time No Known Allergies Allergy Verified 08/04/19 15:04 Past Med/Surg History Medical History Benign hypertension Diarrhea Ribs, multiple fractures Sleep apnea Type II diabetes mellitus Surgical History History of surgery on arm LT arm; detached tendon S/P appendectomy Family History Other No pertinent family history Denies family history of Ovarian cancer Prostate cancer Myocardial infarction Breast cancer Colorectal cancer Social History Smoking Status: Never smoker Hx Alcohol Use: Yes Hx Substance Use: No marital status: Current Living Situation: Spouse current occupational status: retired Feels Safe at Home: Yes Dental Care, Regularly: Yes Physical Activity Frequency: Does not Exercise Seatbelt Use: always Sunscreen Use: Yes Review of Systems 10 system review was performed and was negative except for pertinent positives and negatives as indicated in history of present illness Physical Exam Vital Signs Vital Signs - 24 hr 01/19/20 14:35 01/19/20 15:52 Temperature 37.1 C Temperature Source Oral Pulse Rate 92 H Pulse Rate [Apical] 86 Respiratory Rate 18 20 Respiratory Effort / Characteristics Non-Labored Respiratory Depth Normal Blood Pressure 156/82 H Blood Pressure Mean 106 Pulse Oximetry 96 95 Oxygen Delivery Method Room Air Sepsis Recent Fever Within 48 Hours No Sepsis New/Unexplained Change in Mental Status No Sepsis Action Taken by Nursing No Action Required CONSTITUTIONAL: Healthy and well nourished. Patient does not appear in any acute distress on exam. HEENT: Normocephalic, atraumatic. Pupils equal, round and reactive. No subconjunctival hemorrhage, hemotympanum, TM bulging/erythema or rhinorrhea. Examination of the oropharynx does not show any posterior pharyngeal erythema, tonsillar hypertrophy or evidence for Ludewig's angina. NECK: Examination shows mild fullness over the left lower anterior neck region. No ecchymosis appreciated. The biopsy site does not show evidence for erythema. There is no induration within the anterior soft tissue. LYMPHATICS: No cervical chain adenopathy. RESPIRATORY: Clear to auscultation bilaterally with no wheezing, crackles, rhonchi or stridor. CARDIOVASCULAR: Regular rate and rhythm with no murmurs, rubs or gallops. GASTROINTESTINAL: Bowel sounds present in all quadrants. No epigastric tenderness to palpation. MUSCULOSKELETAL: Patient has no tenderness to palpation over the anterior chest wall. INTEGUMENTARY: No rash or other significant dermatologic conditions noted. HEMATOLOGIC: No ecchymosis or petechiae. PSYCHIATRIC: Positive affect. NEUROLOGIC: No focal neurologic deficits noted. Course Course Patient history and physical exam were performed. Nurses notes were reviewed. Vital signs were reviewed, showing a mildly elevated blood pressure of 156/82. The patient is currently afebrile and not tachycardic. I did explain to the patient that the best imaging to evaluate the neck soft tissue is a CT with IV contrast. The patient has had both a CT and MRI with IV contrast in the past without any issues. IV access was established, and labs were drawn. The patient refused any analgesics. Review of labs shows an elevated white count, sed rate and CRP. Patient is mildly hyponatremic at 135. Creatinine is 1.54, w ith a glucose of 148. CT of the neck with IV contrast is concerning for a liquefied hematoma extending from the thyroid nodule into the superior mediastinum and retrosternal region. With this collection of fluid, patient subjective increase of temperature as well as beta white count and inflammatory markers, infectious etiology became more concerning. The patient was ordered Zosyn 4.5 g IV infusion. Findings were discussed with the patient. I did recommend contacting ENT for further guidance. The case was also discussed with Dr. Chavis, ED attending physician, who is in agreement with this plan. I had our community assistant try to contact Dr. Rincon, ENT physician prototype assembler electronics for Dr. Gill. While awaiting her return call, I also discussed the case with Dr. Mishra, general surgeon on-call, who indicated that the patient would be best managed by ENT. We still had not heard back from ENT at the change of shift. Patient care was transferred to HANNAH Chairez. Please see her dictation for further treatment and final disposition. Administered Medications Discontinued Medications Sodium Chloride (Nss 1000ml) 1,000 mls @ 999 mls/hr IV .Q1H1M ONE Stop: 01/19/20 16:03 Last Admin: 01/19/20 15:26 Dose: 999 mls/hr Documented by: [id number] Piperacillin Sod/Tazobactam Sod (Zosyn) 4.5 gm in 120 mls @ 240 mls/hr IV NOW ONE Stop: 01/19/20 17:18 Last Admin: 01/19/20 17:14 Dose: 240 mls/hr Documented by: [id number] Ioversol (Ioversol 100ml) 93 ml IV ONCE ONE Stop: 01/19/20 16:17 Last Admin: 01/19/20 16:16 Dose: 1 ml Documented by: [id number] Medical Decision Making Medical Records Attestation: I reviewed the patient's medical records. Home Medications Current Medication List: was personally reviewed by me Laboratory Data Attestation: I reviewed the patient's lab results. Result diagrams: 01/19/20 15:20 01/19/20 15:20 Lab Results 01/19/20 01/19/20 01/19/20 Range/Units 15:20 15:20 15:20 WBC 12.85 H (4.8-10.8) K/uL RBC 4.08 L (4.7-6.1) M/uL Hgb 13.3 L (14.0-18.0) g/dL Hct 39.0 L (42-52) % MCV 95.6 (80-100) fL MCH 32.6 (25-34) pg MCHC 34.1 (32-36) g/dL RDW Std Deviation 45.1 (36.4-46.3) fL RDW Coeff of Natalie 12.9 (11.5-14.5) % Plt Count 197 (130-400) K/uL MPV 10.7 H (7.4-10.4) fL Immature Gran % (Auto) 0.3 % Neut % (Auto) 77.7 % Lymph % (Auto) 8.9 % Shoshone % (Auto) 12.9 % Eos % (Auto) 0.0 % Baso % (Auto) 0.2 % Neut # (Auto) 9.98 H (1.4-6.5) K/uL Lymph # (Auto) 1.15 L (1.2-3.4) K/uL Shoshone # (Auto) 1.66 H (0.11-0.59) K/uL Eos # (Auto) 0.00 (0-0.5) K/uL Baso # (Auto) 0.02 (0-0.2) K/uL Immature Gran # (Auto) 0.04 H (0.00-0.02) K/uL ESR 52 H (0-14) mm/hr PT (9.0-12.0) Seconds INR (0.9-1.1) APTT (21.0-31.0) Seconds PTT Ratio Sodium 135 L (136-145) mmol/L Potassium 3.6 (3.5-5.1) mmol/L Chloride 102 (98-107) mmol/L Carbon Dioxide 24 (21-32) mmol/L Anion Gap 10.0 (3-11) BUN 21 H (7-18) mg/dl Creatinine 1.54 H (0.6-1.4) mg/dl Est Cr Clr Drug Dosing 50.9 ml/min Est GFR ( Amer) 52.2 Est GFR (Non-Af Amer) 45.0 BUN/Creatinine Ratio 13.9 (10-20) Glucose 148 H (70-99) mg/dl Calcium 9.3 (8.5-10.1) mg/dl Total Bilirubin 0.8 (0.2-1) mg/dl AST 18 (15-37) U/L ALT 21 (12-78) U/L Alkaline Phosphatase 39 L (45-117) U/L C-Reactive Protein 15.60 H (0-0.29) mg/dl Total Protein 8.0 (6.4-8.2) gm/dl Albumin 3.9 (3.4-5.0) gm/dl Globulin 4.1 H (2.5-4.0) gm/dl Albumin/Globulin Ratio 0.9 (0.9-2) 01/19/20 Range/Units 15:20 WBC (4.8-10.8) K/uL RBC (4.7-6.1) M/uL Hgb (14.0-18.0) g/dL Hct (42-52) % MCV (80-100) fL MCH (25-34) pg MCHC (32-36) g/dL RDW Std Deviation (36.4-46.3) fL RDW Coeff of Natalie (11.5-14.5) % Plt Count (130-400) K/uL MPV (7.4-10.4) fL Immature Gran % (Auto) % Neut % (Auto) % Lymph % (Auto) % Shoshone % (Auto) % Eos % (Auto) % Baso % (Auto) % Neut # (Auto) (1.4-6.5) K/uL Lymph # (Auto) (1.2-3.4) K/uL Shoshone # (Auto) (0.11-0.59) K/uL Eos # (Auto) (0-0.5) K/uL Baso # (Auto) (0-0.2) K/uL Immature Gran # (Auto) (0.00-0.02) K/uL ESR (0-14) mm/hr PT 11.9 (9.0-12.0) Seconds INR 1.1 (0.9-1.1) APTT 31.8 H (21.0-31.0) Seconds PTT Ratio 1.1 Sodium (136-145) mmol/L Potassium (3.5-5.1) mmol/L Chloride (98-107) mmol/L Carbon Dioxide (21-32) mmol/L Anion Gap (3-11) BUN (7-18) mg/dl Creatinine (0.6-1.4) mg/dl Est Cr Clr Drug Dosing ml/min Est GFR ( Amer) Est GFR (Non-Af Amer) BUN/Creatinine Ratio (10-20) Glucose (70-99) mg/dl Calcium (8.5-10.1) mg/dl Total Bilirubin (0.2-1) mg/dl AST (15-37) U/L ALT (12-78) U/L Alkaline Phosphatase (45-117) U/L C-Reactive Protein (0-0.29) mg/dl Total Protein (6.4-8.2) gm/dl Albumin (3.4-5.0) gm/dl Globulin (2.5-4.0) gm/dl Albumin/Globulin Ratio (0.9-2) Imaging Data Attestation: I personally reviewed and interpreted this imaging study as follows: My Impression: My interpretation of a CT with IV contrast of the neck does show fluid from around the thyroid, extending into the upper mediastinum and substernal region. Thyroid nodule is also noted. No soft tissue or tracheal/esophageal displacement appreciated. Radiologist report was also reviewed. Radiologist's Impression: [facility] [address], [id number] CT Scan Report Patient: SHREE SANTIAGO Date: 01/19/20#: [id number]: [facility] ID:[id number]: Date: 1950[facility] Zip: [place], [place] [address]Kqu: 69Location: EDSex: MRoom/Bed:Att Phy:Diagnosis: TROUBLE SWALLOWING,EARACHE,FEVERPri Phy: Haley Esteves MDService Date: 01/19/20Fa Phy:Interpreting Phy: True WileyAdmit Phy: Ordering Phy: Paxton Banda PA cc: ~ CT soft tissue neck w con HISTORY: 69 years-old Male Neck fullness s/p thyroid biopsy acute swelling of the neck status post thyroid biopsy COMPARISON: Chest CT 10/14/2019 TECHNIQUE: Multiple axial CT images of the soft tissues of the neck were obtained following the intravenous ministration of 93 mL Optiray 320. A dose lowering technique was used consistent with the principals of MAN. FINDINGS: The imaged intracranial structures appear unremarkable. Streak artifact from dental amalgam hardware. Patent airway. Large left inferior thyroid nodule measures 3.5 x 2.3 cm, slightly increased in size from 10/14/2019 study. A liquefying hematoma is noted surrounding the nodule which measures approximately 3.4 x 1.6 x 4.8 cm with ill-defined margins and extends into the upper mediastinum and retrosternal tissues. Prominent nonenlarged 7 mm lymph node of the right tracheoesophageal recess. No pathologically enlarged lymph nodes. The parotid and submandibular glands are unremarkable. Mild anterior neck subcutaneous edema. The lung apices are clear without pneumothorax. There is mild nonspecific wall thickening of the proximal esophagus. Vascular structures of the neck appear unremarkable. IMPRESSION: 1. 3.5 x 2.3 cm nodule of the inferior left thyroid lobe. 2. Organizing liquefied hematoma surrounds the nodule and extends into the superior mediastinum and retrosternal tissues as above. Superimposed infection cannot be excluded from imaging alone. Blood Pressure Blood Pressure Findings: Elevated blood pressure MDM Narrative 69-year-old male who presents to the emergency department with complaint of difficulty with swallowing. The patient underwent a thyroid biopsy last Saturday. It is noted that he did continue with aspirin [address] scan today is concerned about perioperative infection and bleed. Patient does have an elevated white count, CRP and sed rate. This is concerning for possible postoperative infection. Patient care will be directed as recommended by ENT. The patient may require transfer to [facility] if we do not hear back from local [facility] ENT. Impression & Plan Hematoma of neck, Postoperative hemorrhage Discharge Plan Visit Data Chief Complaint: Neck Injury/Pain Stated Complaint: TROUBLE SWALLOWING,EARACHE,FEVER ED Provider: Frederick Chavis ED Midlevel Provider: Paxton Banda Discharge Problem: Hematoma of neck, Postoperative hemorrhage Forms Stand Alone Forms: My [facility] Known Prescriptions Prescriptions: No Action metoprolol succinate 50 mg tablet extended release 24 hr See Rx Instructions .ROUTE .COMPLEX Qty: 90 RF: 3 losartan 100 mg tablet 100 mg PO DAILY Qty: 90 RF: 3 pen needle, diabetic [BD Ultra-Fine Patti Pen Needle] 32 gauge x 5/32" needle See Rx Instructions .ROUTE .COMPLEX Qty: 100 RF: 3 (DME) lancets [OneTouch UltraSoft Lancets] misc See Rx Instructions .ROUTE .MEDSUPPLY Qty: 100 RF: 2 metformin 500 mg tablet extended release 24 hr See Rx Instructions .ROUTE .COMPLEX Qty: 360 RF: 3 chlorthalidone 25 mg tablet 25 mg PO DAILY Qty: 90 RF: 1 glipizide 10 mg tablet extended release 24hr 10 mg PO BID Qty: 60 RF: 5 atorvastatin 10 mg tablet 10 mg PO DAILY Qty: 90 RF: 1 omeprazole 20 mg capsule,delayed release(DR/EC) 20 mg PO DAILY Qty: 90 RF: 1 Toujeo SoloStar U-300 Insulin 300 unit/mL (1.5 mL) insulin pen See Rx Instructions .ROUTE .COMPLEX Qty: 4.5 RF: 5 (DME) OneTouch Ultra Blue Test Strip Strip See Dose Instructions .ROUTE .MEDSUPPLY Qty: 300 RF: 1 aspirin 81 mg tablet,delayed release (DR/EC) 81 mg PO DAILY RF: 0 indomethacin 25 mg capsule 25 mg PO TID PRN (Reason: gout) Qty: 30 RF: 0 prednisone 50 mg tablet 50 mg PO DAILY Qty: 5 RF: 0 cholecalciferol (vitamin D3) 50 mcg (2,000 unit) capsule 2,000 units PO DAILY RF: 0 (DME) CPAP Machine Misc See Rx Instructions .ROUTE .MEDSUPPLY Qty: 1 RF: 0 hydrocodone-acetaminophen [Ashton] 5-325 mg tablet 1 tab PO Q6H PRN (Reason: pain) Qty: 12 RF: 0
[2020-01-19 15:33] LABS: Basophils # (auto) 0.02 K/uL (0-0.2); Basophils % (auto) 0.2 %; Hemoglobin 13.3 g/dL (14.0-18.0); Immature Granulocytes # (auto) 0.04 K/uL (0.00-0.02); Immature Granulocytes % (auto) 0.3 %; Lymphocytes # (auto) 1.15 K/uL (1.2-3.4); Lymphocytes % (auto) 8.9 %; Mean Corpuscular Hemoglobin 32.6 pg (25-34); Mean Corpuscular Hgb Conc 34.1 g/dL (32-36); Mean Corpuscular Volume 95.6 fL (80-100); Mean Platelet Volume 10.7 fL (7.4-10.4); Monocytes # (auto) 1.66 K/uL (0.11-0.59); Monocytes % (auto) 12.9 %; Neutrophils # (auto) 9.98 K/uL (1.4-6.5); Neutrophils % (auto) 77.7 %; Platelet Count 197 K/uL (130-400); RDW Coefficient of Variation 12.9 % (11.5-14.5); RDW Standard Deviation 45.1 fL (36.4-46.3); Red Blood Count 4.08 M/uL (4.7-6.1); White Blood Count 12.85 K/uL (4.8-10.8)
[2020-01-19 15:50] LABS: INR 1.1 (0.9-1.1); Partial Thromboplastin Ratio 1.1; Partial Thromboplastin Time 31.8 Seconds (21.0-31.0); Prothrombin Time 11.9 Seconds (9.0-12.0)
[2020-01-19 15:59] LABS: Albumin Level 3.9 gm/dl (3.4-5.0); BUN Creatinine Ratio 13.9 (10-20); C Reactive Protein 15.6 mg/dl (0-0.29); Calcium 9.3 mg/dl (8.5-10.1); Creatinine Clr Calc Pharmacy 50.9 ml/min; Est GFR (African American) 52.2; Potassium 3.6 mmol/L (3.5-5.1)
[2020-01-19 16:02] LABS: Albumin Globulin Ratio 0.9 (0.9-2); Bilirubin,Total 0.8 mg/dl (0.2-1); Globulin 4.1 gm/dl (2.5-4.0)
[2020-01-19] MEDS ORDERED: OPTIRAY 320 100ml IV ONE (16:16)
--- NOTE | 2020-01-19 16:34 | CT Scan Report ---
CT soft tissue neck w con HISTORY: 69 years-old Male Neck fullness s/p thyroid biopsy acute swelling of the neck status post t hyroid biopsy COMPARISON: Chest CT 10/14/2019 TECHNIQUE: Multiple axial CT images of the soft tissues of the neck were obtained following the intra venous ministration of 93 mL Optiray 320. A dose lowering technique was used consistent with the prin cipals of ALA. FINDINGS: The imaged intracranial structures appear unremarkable. Streak artifact from dental amalgam hardware. Patent airway. Large left inferior thyroid nodule measures 3.5 x 2.3 cm, slightly increased in size from 10/14/2019 study. A liquefying hematoma is noted surrounding the nodule which measures approximat kera 3.4 x 1.6 x 4.8 cm with ill-defined margins and extends into the upper mediastinum and retrostern al tissues. Prominent nonenlarged 7 mm lymph node of the right tracheoesophageal recess. No pathologi dann enlarged lymph nodes. The parotid and submandibular glands are unremarkable. Mild anterior neck subcutaneous edema. The lung apices are clear without pneumothorax. There is mild nonspecific wall t hickening of the proximal esophagus. Vascular structures of the neck appear unremarkable. IMPRESSION: 1. 3.5 x 2.3 cm nodule of the inferior left thyroid lobe. 2. Organizing liquefied hematoma surrounds the nodule and extends into the superior mediastinum and r etrosternal tissues as above. Superimposed infection cannot be excluded from imaging alone. ACT 112: Negative or not required by law. The above report was generated using voice recognition software. It may contain grammatical, syntax o r spelling errors. Electronically signed by: Cali Wiley M.D. 01/19/2020 4:33 PM
[2020-01-19] MEDS ORDERED: PIPERACILLIN/TAZOBACTAM 4.5 GM/120 ML BAG IV ONE (16:49)
[2020-01-19] MEDS ORDERED: PIPERACILL/TAZOBAC CONSULT ACTIVE PRN (16:49)
--- NOTE | 2020-01-19 17:15 | Emergency Department Note ---
ED Visit Note Patient was seen by our PA/TERMINAL CLERK. I was involved in the patient's care and did evaluate the patient myself. I was involved in the care throughout the ER stay. The patient presents with neck discomfort. He just had a procedure on the anterior neck. He appears to have a hematoma by CT imaging. His airway was patent. He was not toxic or febrile. He was not hypoxic. He did have a slight white count elevation. Antibiotics have been ordered. We will attempt to get in contact with the ENT specialist who performed the procedure or possibly the specialist covering for the group. The patient will likely require hospitalization. He may require transfer to a tertiary center. The decision between admission at our facility and transfer will depend on the advice of the on-call center dispatcher. .
--- NOTE | 2020-01-19 17:35 | Emergency Department Note ---
Impression & Plan Hematoma of neck, Postoperative hemorrhage ED Provider Note I received sign out from Erich Banda PA-C at 1720 change of shift. The patient presented with progressive worsening pain and swelling in his neck and pain with swallowing s/p thyroid nodule biopsy [address] imaging showed a large fluid collection concerning for a liquefied hematoma versus possible infection. The patient does have a leukocytosis but has been afebrile, nontoxic-appearing and stable. I spoke on the phone with Dr. Alves, ENT, who recommended admitting the patient to the medicine service for IV antibiotics and he is happy and available to consult on the patient if needed. I spoke with Marita Siddiqui PA-C with [facility], who agrees to evaluate the patient for admission. Dr. Drake will admit the patient. Spoke with the patient and updated him on plan for admission for IV antibiotics, he was agreeable to this plan. The patient was in no distress, resting calmly i n the stretcher, breathing comfortably. He was stable at time of admission. The chart was completed utilizing [employer] Speech voice recognition software. Grammatical errors, random word insertions, pronoun errors, and incomplete sentences are an occasional consequence of this system due to software limitations, ambient noise, and hardware issues. Any formal questions or concerns about the content, text, or information contained within the body of this dictation should be directly addressed to the nurse practitioner for clarification. Past Med/Surg History Medical History Diabetes mellitus, type II HLD (hyperlipidemia) HTN (hypertension) MARY on CPAP Surgical History History of surgery on arm LT arm; detached tendon S/P appendectomy S/P thyroid biopsy Family History Other AAA (abdominal aortic aneurysm) Denies family history of Ovarian cancer Prostate cancer Myocardial infarction Breast cancer Colorectal cancer Social History Smoking Status: Never smoker Hx Alcohol Use: No Hx Substance Use: No Preferred Language: Polish Communication Ability: Effective Chestnut Tanner Required: No Beliefs That Will Affect Care: None marital status: Current Living Situation: Spouse current occupational status: retired Other Information That Helps Us Care for You: No Feels Safe at Home: Yes Safety Concerns: Feels Safe At This Time Dental Care, Regularly: Yes Physical Activity Frequency: Does not Exercise Seatbelt Use: always Sunscreen Use: Yes Assistive Devices: None Allergies Allergies Allergy/AdvReac Type Severity Reaction Status Date / Time No Known Allergies Allergy Verified 01/19/20 19:35 Home Meds Home Medications Medication Instructions Recorded Confirmed aspirin 81 mg tablet,delayed 81 mg PO DAILY tab 11/25/18 01/19/20 release indomethacin 25 mg capsule 25 mg PO TID PRN #30 cap 11/25/18 01/19/20 acetaminophen [Tylenol Extra 1,000 mg PO Q6H PRN 01/19/20 01/19/20 Strength] atorvastatin 10 mg PO QAM 01/19/20 01/19/20 glipizide 15 mg PO BID 01/19/20 01/19/20 ibuprofen [Advil] 400 mg PO Q6H PRN 01/19/20 01/19/20 insulin glargine U-300 conc 32 unit SUBCUT QPM 01/19/20 01/19/20 [Toujeo SoloStar U-300 Insulin] metformin 1,000 mg PO .BID BUT ON HOLD 01/19/20 01/19/20 metoprolol succinate 50 mg PO DAILY 01/19/20 01/19/20 omeprazole 20 mg PO MOWEFR 01/19/20 01/19/20 Previous Rx's Medication Instructions Recorded losartan 100 mg tablet 100 mg PO DAILY #90 tab 11/10/18 pen needle, diabetic 32 gauge x See Rx Instructions .ROUTE 12/29/18 532" .COMPLEX #100 unspecified lancets #100 ea 12/30/18 CPAP Machine #1 ea 04/23/19 chlorthalidone 25 mg tablet 25 mg PO DAILY #90 tab 04/24/19 blood sugar diagnostic #300 ea 11/05/19 Results & Data (ED) Vital Signs Vital Signs - 24 hr 01/19/20 18:47 Pulse Rate [Apical] 70 Respiratory Rate 18 Blood Pressure [Left Arm] 128/59 L Blood Pressure Mean [Left Arm] 82 Pulse Oximetry 99 Laboratory Data Result diagrams: 01/20/20 17:02 01/20/20 17:02 Lab Results 01/19/20 01/19/20 01/19/20 Range/Units 15:20 15:20 15:20 WBC 12.85 H (4.8-10.8) K/uL RBC 4.08 L (4.7-6.1) M/uL Hgb 13.3 L (14.0-18.0) g/dL Hct 39.0 L (42-52) % MCV 95.6 (80-100) fL MCH 32.6 (25-34) pg MCHC 34.1 (32-36) g/dL RDW Std Deviation 45.1 (36.4-46.3) fL RDW Coeff of Natalie 12.9 (11.5-14.5) % Plt Count 197 (130-400) K/uL MPV 10.7 H (7.4-10.4) fL Immature Gran % (Auto) 0.3 % Neut % (Auto) 77.7 % Lymph % (Auto) 8.9 % [place] % (Auto) 12.9 % Eos % (Auto) 0.0 % Baso % (Auto) 0.2 % Neut # (Auto) 9.98 H (1.4-6.5) K/uL Lymph # (Auto) 1.15 L (1.2-3.4) K/uL [place] # (Auto) 1.66 H (0.11-0.59) K/uL Eos # (Auto) 0.00 (0-0.5) K/uL Baso # (Auto) 0.02 (0-0.2) K/uL Immature Gran # (Auto) 0.04 H (0.00-0.02) K/uL ESR 52 H (0-14) mm/hr PT (9.0-12.0) Seconds INR (0.9-1.1) APTT (21.0-31.0) Seconds PTT Ratio Sodium 135 L (136-145) mmol/L Potassium 3.6 (3.5-5.1) mmol/L Chloride 102 (98-107) mmol/L Carbon Dioxide 24 (21-32) mmol/L Anion Gap 10.0 (3-11) BUN 21 H (7-18) mg/dl Creatinine 1.54 H (0.6-1.4) mg/dl Est Cr Clr Drug Dosing 50.9 ml/min Est GFR ( Amer) 52.2 Est GFR (Non-Af Amer) 45.0 BUN/Creatinine Ratio 13.9 (10-20) Glucose 148 H (70-99) mg/dl Calcium 9.3 (8.5-10.1) mg/dl Total Bilirubin 0.8 (0.2-1) mg/dl AST 18 (15-37) U/L ALT 21 (12-78) U/L Alkaline Phosphatase 39 L (45-117) U/L C-Reactive Protein 15.60 H (0-0.29) mg/dl Total Protein 8.0 (6.4-8.2) gm/dl Albumin 3.9 (3.4-5.0) gm/dl Globulin 4.1 H (2.5-4.0) gm/dl Albumin/Globulin Ratio 0.9 (0.9-2) Procalcitonin (0-0.5) ng/ml Hepatitis C Ab Screen (Neg) SARS-CoV-2 Ag (Rapid) (Negative) 01/19/20 01/19/20 01/19/20 Range/Units 15:20 15:20 15:20 WBC (4.8-10.8) K/uL RBC (4.7-6.1) M/uL Hgb (14.0-18.0) g/dL Hct (42-52) % MCV (80-100) fL MCH (25-34) pg MCHC (32-36) g/dL RDW Std Deviation (36.4-46.3) fL RDW Coeff of Natalie (11.5-14.5) % Plt Count (130-400) K/uL MPV (7.4-10.4) fL Immature Gran % (Auto) % Neut % (Auto) % Lymph % (Auto) % [place] % (Auto) % Eos % (Auto) % Baso % (Auto) % Neut # (Auto) (1.4-6.5) K/uL Lymph # (Auto) (1.2-3.4) K/uL [place] # (Auto) (0.11-0.59) K/uL Eos # (Auto) (0-0.5) K/uL Baso # (Auto) (0-0.2) K/uL Immature Gran # (Auto) (0.00-0.02) K/uL ESR (0-14) mm/hr PT 11.9 (9.0-12.0) Seconds INR 1.1 (0.9-1.1) APTT 31.8 H (21.0-31.0) Seconds PTT Ratio 1.1 Sodium (136-145) mmol/L Potassium (3.5-5.1) mmol/L Chloride (98-107) mmol/L Carbon Dioxide (21-32) mmol/L Anion Gap (3-11) BUN (7-18) mg/dl Creatinine (0.6-1.4) mg/dl Est Cr Clr Drug Dosing ml/min Est GFR ( Amer) Est GFR (Non-Af Amer) BUN/Creatinine Ratio (10-20) Glucose (70-99) mg/dl Calcium (8.5-10.1) mg/dl Total Bilirubin (0.2-1) mg/dl AST (15-37) U/L ALT (12-78) U/L Alkaline Phosphatase (45-117) U/L C-Reactive Protein (0-0.29) mg/dl Total Protein (6.4-8.2) gm/dl Albumin (3.4-5.0) gm/dl Globulin (2.5-4.0) gm/dl Albumin/Globulin Ratio (0.9-2) Procalcitonin 0.20 (0-0.5) ng/ml Hepatitis C Ab Screen Neg (Neg) SARS-CoV-2 Ag (Rapid) (Negative) 01/19/20 Range/Units 18:47 WBC (4.8-10.8) K/uL RBC (4.7-6.1) M/uL Hgb (14.0-18.0) g/dL Hct (42-52) % MCV (80-100) fL MCH (25-34) pg MCHC (32-36) g/dL RDW Std Deviation (36.4-46.3) fL RDW Coeff of Natalie (11.5-14.5) % Plt Count (130-400) K/uL MPV (7.4-10.4) fL Immature Gran % (Auto) % Neut % (Auto) % Lymph % (Auto) % [place] % (Auto) % Eos % (Auto) % Baso % (Auto) % Neut # (Auto) (1.4-6.5) K/uL Lymph # (Auto) (1.2-3.4) K/uL [place] # (Auto) (0.11-0.59) K/uL Eos # (Auto) (0-0.5) K/uL Baso # (Auto) (0-0.2) K/uL Immature Gran # (Auto) (0.00-0.02) K/uL ESR (0-14) mm/hr PT (9.0-12.0) Seconds INR (0.9-1.1) APTT (21.0-31.0) Seconds PTT Ratio Sodium (136-145) mmol/L Potassium (3.5-5.1) mmol/L Chloride (98-107) mmol/L Carbon Dioxide (21-32) mmol/L Anion Gap (3-11) BUN (7-18) mg/dl Creatinine (0.6-1.4) mg/dl Est Cr Clr Drug Dosing ml/min Est GFR ( Amer) Est GFR (Non-Af Amer) BUN/Creatinine Ratio (10-20) Glucose (70-99) mg/dl Calcium (8.5-10.1) mg/dl Total Bilirubin (0.2-1) mg/dl AST (15-37) U/L ALT (12-78) U/L Alkaline Phosphatase (45-117) U/L C-Reactive Protein (0-0.29) mg/dl Total Protein (6.4-8.2) gm/dl Albumin (3.4-5.0) gm/dl Globulin (2.5-4.0) gm/dl Albumin/Globulin Ratio (0.9-2) Procalcitonin (0-0.5) ng/ml Hepatitis C Ab Screen (Neg) SARS-CoV-2 Ag (Rapid) Negative (Negative) Administered Medications Acetaminophen (Acetaminophen 325 Mg Tab) 650 mg PO Q4H PRN PRN Reason: Pain or Fever Stop: 02/18/20 23:51 Last Admin: 01/20/20 15:48 Dose: 650 mg Documented by: [id number] Admin: 01/20/20 09:20 Dose: 650 mg Documented by: [id number] Admin: 01/20/20 00:12 Dose: 650 mg Documented by: [id number] Atorvastatin Calcium (Atorvastatin 10 Mg Tab) 10 mg PO QAM [facility] Stop: 02/19/20 08:59 Last Admin: 01/20/20 09:05 Dose: 10 mg Documented by: [id number] Piperacillin Sod/Tazobactam (Sod 3.375 gm/ Dextrose) 115 mls @ 28.75 mls/hr IV Q8H [facility]OB; Protocol Stop: 01/30/20 13:59 Last Infusion: 01/20/20 18:13 Dose: 0 mls/hr Documented by: [id number] Admin: 01/20/20 13:52 Dose: 28.8 mls/hr Documented by: [id number] Sodium Chloride (Nss 1000ml) 1,000 mls @ 125 mls/hr IV .Q8H [facility] Stop: 02/19/20 08:59 Last Infusion: 01/20/20 17:12 Dose: 125 mls/hr Documented by: [id number] Admin: 01/20/20 09:08 Dose: 80 mls/hr Documented by: [id number] Daptomycin 300 mg/ Syringe 6 mls @ 3 mls/min IV Q24H BOB; Protocol Stop: 01/27/20 17:59 Last Admin: 01/20/20 18:12 Dose: 3 mls/min Documented by: [id number] Insulin Aspart (Insulin Aspart 100 Units/Ml 3 Ml Pen) 0 units SC ACHS [facility] Stop: 02/18/20 20:59 Last Admin: 01/20/20 17:12 Dose: Not Given Documented by: [id number] Cosigned by: [id number] Admin: 01/20/20 12:16 Dose: 2 units Documented by: [id number] Cosigned by: [id number] Admin: 01/20/20 09:04 Dose: 2 units Documented by: [id number] Cosigned by: [id number] Admin: 01/19/20 21:37 Dose: Not Given Documented by: [id number] Cosigned by: [id number] Insulin Glargine (Insulin Glargine Solostar 100 Units/Ml 3 Ml Pen) 0 units SC BID [facility] Stop: 02/18/20 20:59 Last Admin: 01/20/20 09:03 Dose: 10 units Documented by: [id number] Cosigned by: [id number] Admin: 01/19/20 21:39 Dose: 10 units Documented by: [id number] Cosigned by: [id number] Metoprolol Succinate (Metoprolol Succ 50mg Ext Rel Tab) 50 mg PO DAILY [facility] Stop: 02/19/20 08:59 Last Admin: 01/20/20 09:05 Dose: 50 mg Documented by: [id number] Pantoprazole Sodium (Pantoprazole 40 Mg Tab) 40 mg PO MOWEFR [facility] Stop: 02/19/20 08:59 Last Admin: 01/20/20 09:05 Dose: 40 mg Documented by: [id number] Discontinued Medications Sodium Chloride (Nss 1000ml) 1,000 mls @ 999 mls/hr IV .Q1H1M ONE Stop: 01/19/20 16:03 Last Infusion: 01/19/20 18:28 Dose: 0 mls/hr Documented by: [id number] Admin: 01/19/20 15:26 Dose: 999 mls/hr Documented by: [id number] Piperacillin Sod/Tazobactam Sod (Zosyn) 4.5 gm in 120 mls @ 240 mls/hr IV NOW ONE Stop: 01/19/20 17:18 Last Infusion: 01/19/20 18:28 Dose: 0 mls/hr Documented by: [id number] Admin: 01/19/20 17:14 Dose: 240 mls/hr Documented by: [id number] Sodium Chloride (Nss 1000ml) 1,000 mls @ 100 mls/hr IV .Q10H [facility] Stop: 01/20/20 06:30 Last Infusion: 01/20/20 05:40 Dose: 0 mls/hr Documented by: [id number] Admin: 01/19/20 20:47 Dose: 100 mls/hr Documented by: [id number] Piperacillin Sod/Tazobactam (Sod 4.5 gm/ Dextrose) 120 mls @ 200 mls/hr IV ONE ONE; Protocol Stop: 01/20/20 08:35 Last Infusion: 01/20/20 10:00 Dose: 0 mls/hr Documented by: [id number] Admin: 01/20/20 09:02 Dose: 200 mls/hr Documented by: [id number] Ioversol (Ioversol 100ml) 93 ml IV ONCE ONE Stop: 01/19/20 16:17 Last Admin: 01/19/20 16:16 Dose: 1 ml Documented by: [id number] Discharge Plan Visit Data Chief Complaint: Neck Injury/Pain Stated Complaint: TROUBLE SWALLOWING,EARACHE,FEVER ED Provider: Frederick Chavis ED Midlevel Provider: Randi Galvin Discharge Problem: Hematoma of neck, Postoperative hemorrhage Patient Disposition: Admitted As Inpatient Discharge Instructions Interventions: ED Discharge Assessment Last Done: 01/19/20 20:20
--- NOTE | 2020-01-19 18:30 | Communication Note ---
Date of Service: January 19, 2020 HISTORY: Record reviewed. Patient interviewed and examined. Care coordinated with Marita Siddiqui PA-C. Please refer to her documentation for complete history. Briefly, 69 YO male with history of hypertension, DM type 2, sleep apnea, and other problems. Ultrasound-guided biopsy of thyroid nodule performed by Dr. Alves on 01/13/20. Since the procedure, the patient has developed progressive discomfort in his neck and difficulty swallowing. Able to swallow saliva. Rare cough, no SOB. Low grade temp at home. He came to the ED for further evaluation. EXAM: General- no distress Neck- mild swelling and tenderness anterior neck; no stridor Lungs- clear to auscultation; no respiratory distress Cardiovascular- RRR; no murmur; no gallop; no JVD; no pretibial edema Abdomen- + bowel sounds, soft, nontender Extremities- no cyanosis; no calf tenderness Neuro- alert, oriented Skin- warm & dry DATA: 01/19/20 15:20 01/19/20 15:[address] SOFT TISSUE NECK FINDINGS: The imaged intracranial structures appear unremarkable. Streak artifact from dental amalgam hardware. Patent airway. Large left inferior thyroid nodule measures 3.5 x 2.3 cm, slightly increased in size from 10/14/2019 study. A liquefying hematoma is noted surrounding the nodule which measures approximately 3.4 x 1.6 x 4.8 cm with ill-defined margins and extends into the upper mediastinum and retrosternal tissues. Prominent nonenlarged 7 mm lymph node of the right tracheoesophageal recess. No pathologically enlarged lymph nodes. The parotid and submandibular glands are unremarkable. Mild anterior neck subcuta neous edema. The lung apices are clear without pneumothorax. There is mild nonspecific wall thickening of the proximal esophagus. Vascular structures of the neck appear unremarkable. IMPRESSION: 1. 3.5 x 2.3 cm nodule of the inferior left thyroid lobe. 2. Organizing liquefied hematoma surrounds the nodule and extends into the superior mediastinum and retrosternal tissues as above. Superimposed infection cannot be excluded from imaging alone. Electronically signed by: Cali Wiley M.D. 01/19/2020 4:33 PM ASSESSMENT AND PLAN: Cervical fluid collection after ultrasound-guided biopsy of thyroid nodule performed on 01/13/20. Appearance consistent with hematoma with possible associated infection. Afebrile in ED (although low grade temp at home). WBC and CRP elevated. ? infection (vs inflammation from hematoma). Received IV piperacillin / tazobactam in ED. Check procalcitonin. Consult ENT. Dehydrated. IV fluids. Please refer to LEWSI Siddiqui's documentation for discussion of other issues.
--- NOTE | 2020-01-19 19:05 | History & Physical Report ---
Date of Service January 19, 2020 Assessment & Plan (1) Hematoma of neck: This is a 69-year-old male with PMH of type 2 diabetes, sleep apnea on CPAP, HTN and HLD who presents with throat pain and difficulty swallowing since thyroid biopsy 1 week ago. -Ultrasound-guided biopsy of thyroid nodule performed by Dr. Alves on 01/13/20, has since developed pain and difficulty swallowing -Soft tissue neck CT with organized liquefied hematoma surrounding nodule extending into the superior mediastinum and retrosternal tissues. Superimposed infection cannot be excluded -Mild leukocytosis of 12.85. CRP 15.6, ESR 52, procalcitonin normal -No respiratory distress, O2 saturation 99% on room air -Continue IV Zosyn, gentle IV fluids -ENT consult placed. Dr. Alves to evaluate tomorrow -Aspiration precautions, soft foods (2) Diabetes mellitus, type II: A1c 8.0 in August. Repeat a1c ordered -Hold home agents -SSI while in-patient -BSG AC HS (3) HTN (hypertension): Normotensive. Continue chlorthalidone and metoprolol succinate (4) HLD (hyperlipidemia): Continue statin (5) MARY on CPAP: CPAP HS DVT Ppx: SCDs Code status: FULL PCP: Danielito Dispo: Admitted to PCU. Plan to return home once medically stable. Patient seen in collaboration with Dr. Drake. Please see addendum. History of Present Illness Chief Complaint: Painful throat, difficulty swallowing Primary Care Provider: Berny Esteves MD This is a 69-year-old male with PMH of type 2 diabetes, sleep apnea on CPAP, HTN and HLD who presents with throat pain and difficulty swallowing since thyro id biopsy 1 week ago. Patient underwent ultrasound-guided biopsy of thyroid nodule performed by Dr. Alves on 01/13/20. A few days later, patient developed a full feeling around thyroid and painful swallowing. Describes pain as "external pressure on esophagus" that makes it painful and slightly difficult to swallow, although he has been able to tolerate soft solid foods without issue. Denies any difficulty breathing or respiratory distress. Has a pulse ox at home that he has been using and has maintained 100% oxygen saturation. Pain has persisted, so called ENT office today and first prescribed Augmentin course but then was directed to come to ED for further evaluation. Endorses a low-grade fever usually around 99 F but as high as 100 F once yesterday. Had 1 bout of chills and diarrhea on Saturday that have not recurred. Has had some pressure in ears and mild headache. Denies any visual changes, lightheadedness, cough, chest pain, shortness of breath, wheezing, nausea, vomiting, abdominal pain, dysuria. In ED, patient is afebrile and hemodynamically stable. Mild leukocytosis of 12.85. CRP 15.6, ESR 52, procalcitonin pending. Would screen negative. Soft tissue neck CT with 3.5 x 2.3 cm nodule of inferior left thyroid lobe with organized liquefied hematoma surrounding nodule extending into the superior mediastinum and retrosternal tissues. Superimposed infection cannot be excluded. ED provider discussed case with ENT Dr. Alves, who recommended patient be admitted for continuation of IV antibiotics and ENT consult. Allergies Allergy/AdvReac Type Severity Reaction Status Date / Time No Known Allergies Allergy Verified 01/19/20 19:35 Home Medications Medication Instructions Recorded Confirmed Type losartan 100 mg tablet 100 mg PO DAILY #90 tab 11/10/18 01/19/20 Rx aspirin 81 mg tablet,delayed 81 mg PO DAILY tab 11/25/18 01/19/20 History release indomethacin 25 mg capsule 25 mg PO TID PRN #30 cap 11/25/18 01/19/20 History pen needle, diabetic 32 gauge x See Rx Instructions .ROUTE 12/29/18 01/19/20 Rx 5/32" .COMPLEX #100 unspecified lancets #100 ea 12/30/18 01/19/20 Rx CPAP Machine #1 ea 04/23/19 01/19/20 Rx chlorthalidone 25 mg tablet 25 mg PO DAILY #90 tab 04/24/19 01/19/20 Rx blood sugar diagnostic #300 ea 11/05/19 01/19/20 Rx acetaminophen [Tylenol Extra 1,000 mg PO Q6H PRN 01/19/20 01/19/20 History Strength] atorvastatin 10 mg PO QAM 01/19/20 01/19/20 History glipizide 15 mg PO BID 01/19/20 01/19/20 History ibuprofen [Advil] 400 mg PO Q6H PRN 01/19/20 01/19/20 History insulin glargine U-300 conc 32 unit SUBCUT QPM 01/19/20 01/19/20 History [Toujhonatan BurtCarlar U-300 Insulin] metformin 1,000 mg PO .BID BUT ON HOLD 01/19/20 01/19/20 History metoprolol succinate 50 mg PO DAILY 01/19/20 01/19/20 History omeprazole 20 mg PO MOWEFR 01/19/20 01/19/20 History Past Med/Surg History Medical History Diabetes mellitus, type II HLD (hyperlipidemia) HTN (hypertension) MARY on CPAP Surgical History History of surgery on arm LT arm; detached tendon S/P appendectomy S/P thyroid biopsy Family History Other AAA (abdominal aortic aneurysm) Denies family history of Ovarian cancer Prostate cancer Myocardial infarction Breast cancer Colorectal cancer Social History Smoking Status: Never smoker Hx Alcohol Use: Yes Hx Substance Use: No marital status: Current Living Situation: Spouse current occupational status: retired Feels Safe at Home: Yes Dental Care, Regularly: Yes Physical Activity Frequency: Does not Exercise Seatbelt Use: always Sunscreen Use: Yes Review of Systems Review of Systems: At least ten systems reviewed and negative except as noted in the HPI. Physical Exam Physical Exam: General Appearance: WD/WN, vitals as above, NAD, sitting up in bed, pleasant, conversing easily Head: normocephalic, atraumatic Eyes: normal inspection, PERRL, conjunctivae normal, anicteric sclerae ENT: external ear and nose normal, oropharynx normal, bilateral TMs pearly burr, light reflex and bony landmarks present bilaterally Neck: normal visual inspection, trachea midline, thyroid TTP with mild edema and erythema, no warmth Respiratory: normal respiratory effort, lungs clear to auscultation, no wheeze, rales, rhonchi. No respiratory distress Cardiovascular: regular rate, rhythm, no murmur, normal peripheral pulses, no BLE edema. Vessels: no JVD Chest: normal inspection of chest Abdomen/GI: normal bowel sounds, soft, nontender, no hepatosplenomegaly Extremities/Musculoskeletal: no cyanosis or clubbing, extremities motor strength 5/5 Neurologic: PERRL, EOMI, accommodation nl, no face palsy, no dysarthria, CN's II-XI intact bilaterally and moves all extremities Psychiatric: A+Ox3, euthymic affect Skin: no rashes, normal color, warm/dry Results & Data Results & Data ([facility]) Vital Signs (Past 12 Hours) Vital Signs Temp Pulse Pulse Resp BP BP Pulse Ox 01/19/20 18:47 70 18 128/59 L 99 01/19/20 17:32 75 18 133/66 95 01/19/20 15:52 86 20 95 01/19/20 14:35 37.1 C 92 H 18 156/82 H 96 Laboratory Results Short CBC 01/19/20 Range/Units 15:20 WBC 12.85 H (4.8-10.8) K/uL Hgb 13.3 L (14.0-18.0) g/dL Hct 39.0 L (42-52) % Plt Count 197 (130-400) K/uL BMP 01/19/20 15:20 Sodium 135 L Potassium 3.6 Chloride 102 Carbon Dioxide 24 BUN 21 H Creatinine 1.54 H Glucose 148 H Calcium 9.3 Liver Function 01/19/20 Range/Units 15:20 Total Bilirubin 0.8 (0.2-1) mg/dl AST 18 (15-37) U/L ALT 21 (12-78) U/L Alkaline Phosphatase 39 L (45-117) U/L Albumin 3.9 (3.4-5.0) gm/dl Diagnostic Findings Soft tissue neck CT: IMPRESSION: 1. 3.5 x 2.3 cm nodule of the inferior left thyroid lobe. 2. Organizing liquefied hematoma surrounds the nodule and extends into the s uperior mediastinum and retrosternal tissues as above. Superimposed infection cannot be excluded from imaging alone. Code Status & VTE Plan VTE Prophylaxis Plan VTE Prophylaxis will be ordered: Yes Supervising Physician Co-Signing Physician Notes HISTORY: Record reviewed. Patient interviewed and examined. Care coordinated with Marita Siddiqui PA-C. Please refer to her documentation for complete history. Briefly, 69 YO male with history of hypertension, DM type 2, sleep apnea, and other problems. Ultrasound-guided biopsy of thyroid nodule performed by Dr. Alves on 01/13/20. Since the procedure, the patient has developed progressive discomfort in his neck and difficulty swallowing. Able to swallow saliva. Rare cough, no SOB. Low grade temp at home. He came to the ED for further evaluation. EXAM: General- no distress Neck- mild swelling and tenderness anterior neck; no stridor Lungs- clear to auscultation; no respiratory distress Cardiovascular- RRR; no murmur; no gallop; no JVD; no pretibial edema Abdomen- + bowel sounds, soft, nontender Extremities- no cyanosis; no calf tenderness Neuro- alert, oriented Skin- warm & dry DATA: 01/19/20 15:20 01/19/20 15:[address] SOFT TISSUE NECK FINDINGS: The imaged intracranial structures appear unremarkable. Streak artifact from dental amalgam hardware. Patent airway. Large left inferior thyroid nodule measures 3.5 x 2.3 cm, slightly increased in size from 10/14/2019 study. A liquefying hematoma is noted surrounding the nodule which measures approximately 3.4 x 1.6 x 4.8 cm with ill-defined margins and extends into the upper mediastinum and retrosternal tissues. Prominent nonenlarged 7 mm lymph node of the right tracheoesophageal recess. No pathologically enlarged lymph nodes. The parotid and submandibular glands are unremarkable. Mild anterior neck subcutaneous edema. The lung apices are clear without pneumothorax. There is mild nonspecific wall thickening of the proximal esophagus. Vascular structures of the neck appear unremarkable. IMPRESSION: 1. 3.5 x 2.3 cm nodule of the inferior left thyroid lobe. 2. Organizing liquefied hematoma surrounds the nodule and extends into the superior mediastinum and retrosternal tissues as above. Superimposed infection cannot be excluded from imaging alone. Electronically signed by: Cali Wiley M.D. 01/19/2020 4:33 PM ASSESSMENT AND PLAN: Cervical fluid collection after ultrasound-guided biopsy of thyroid nodule performed on 01/13/20. Appearance consistent with hematoma with possible associated infection. Afebrile in ED (although low grade temp at home). WBC and CRP elevated. ? infection (vs inflammation from hematoma). Received IV piperacillin / tazobactam in ED. Check procalcitonin. Consult ENT. Dehydrated. IV fluids. Please refer to LEWIS Siddiqui's documentation for discussion of other issues.
[2020-01-19] MEDS ORDERED: GLUCOSE 40% GEL 15 GM TUBE PO PRN (20:31)
[2020-01-19] MEDS ORDERED: HYDROmorphone INJ 0.5 MG/0.5 ML SYR IV PRN (20:31)
[2020-01-19] MEDS ORDERED: GLUCOSE 10 TABS/TUBE PO PRN (20:31)
[2020-01-19] MEDS ORDERED: DEXTROSE 50% 50 ML SYRINGE IV PRN (20:31)
[2020-01-19] MEDS ORDERED: GLUCAGON FOR INJ 1 MG VIAL SQ PRN (20:31)
[2020-01-19] MEDS ORDERED: SODIUM CHLORIDE 0.9% 1000ML 1,000 ML IV SCH (20:31)
[2020-01-19] MEDS ORDERED: CARBOHYDRATES FOR HYPOGLYCEMIA PO PRN (20:31)
[2020-01-19] MEDS ORDERED: INFLUENZA ADMINISTRATION CHARGE ONE (21:11)
[2020-01-19] MEDS ORDERED: INFLUENZA VIRUS QUAD VACCINE 0.5 ML SYR IM ONE (21:11)
[2020-01-19] MEDS ORDERED: INFLUENZA VACCINE HIGH DOSE 65+ 0.7 ML SYR IM ONE (21:30)
[2020-01-19] MEDS: INSULIN ASPART 100 UNITS/ML 3 ML PEN SC SCH (21:37)
[2020-01-19] MEDS: INSULIN GLARGINE SOLOSTAR 100 UNITS/ML 3 ML PEN SC SCH (21:39)
[2020-01-20] MEDS: ACETAMINOPHEN 325 MG TAB PO PRN ×3 (00:12→15:48)
[2020-01-20] MEDS ORDERED: PIPERACILL/TAZOBAC CONSULT ACTIVE PRN (07:53)
[2020-01-20] MEDS ORDERED: PIPERACILLIN/TAZOBACTAM 4.5 GM in DEXTROSE 5% 100 ML IV STA (07:53)
[2020-01-20] MEDS ORDERED: PIPERACILLIN/TAZOBACTAM 4.5 GM in DEXTROSE 5% 100 ML IV ONE (08:00)
[2020-01-20 08:08] LABS: Hematocrit (blood only) 36.9 % (42-52); Hemoglobin 12.2 g/dL (14.0-18.0); Mean Corpuscular Hemoglobin 32.4 pg (25-34); Mean Corpuscular Hgb Conc 33.1 g/dL (32-36); Mean Corpuscular Volume 97.9 fL (80-100); Mean Platelet Volume 11.1 fL (7.4-10.4); Platelet Count 187 K/uL (130-400); RDW Coefficient of Variation 13.2 % (11.5-14.5); RDW Standard Deviation 47.2 fL (36.4-46.3); Red Blood Count 3.77 M/uL (4.7-6.1); White Blood Count 10.32 K/uL (4.8-10.8)
--- NOTE | 2020-01-20 08:34 | ENT Consultation ---
Date of Consultation January 20, 2020 Assessment & Plan (1) Hematoma of neck: Patient with post ultrasound-guided FNA hematoma. Low level of concern for infection at this point but due to mild elevation of white count and improvement in symptoms with 1 course of Zosyn would recommend continuation of IV antibiotics for 24-48 hours. If patient continues to improve on IV antibiotics and erythema of the neck improves he could be transitioned to oral antibiotics at that point. Discussed with the patient that in the event things progress and become worse the area may need to be opened surgically which would require transfer to a tertiary care center where a thoracic surgeon was availabl e to be on back up as the majority of the hematoma is in the upper mediastinum. As patient only received 1 dose of Zosyn, I reordered it. Agree with broad- spectrum coverage at this point. Discussed the case with Dr. Drake Present on Admission?: Yes History of Present Illness Attending Physician: William Drake MD History of Present Illness This is a 69-year-old male who underwent ultrasound-guided fine-needle aspiration of a thyroid nodule on SaturdayJanuary 12. Patient did well during the procedure and afterward. He states that he felt well until the weekend when he started to have some dysphagia, odynophagia and bilateral ear pain. He denied any fevers. States that yesterday the ear pain, neck discomfort and odynophagia worsened. My partner Dr. Rincon recommended he go to the emergency department for imaging as I was in the operating room all day. CT scan of the neck was obtained which showed a hematoma surrounding the cystic nodule which had been biopsied. Due to the patient's symptoms he was admitted overnight to the hospitalist service. At the time of admission he was afebrile and has remained afebrile. His white count is mildly elevated to 12. He does admit to taking his baby aspirin which he stopped prior to the FNA. Patient received 1 dose of Zosyn at 6:00 p.m. last night he has not received any further antibiotics since that time. He states his odynophagia and bilateral otalgia has resolved. He feels he has a little more swelling of the neck today. Allergies Allergy/AdvReac Type Severity Reaction Status Date / Time No Known Allergies Allergy Verified 01/19/20 19:35 Home Medications Medication Instructions Recorded Confirmed Type losartan 100 mg tablet 100 mg PO DAILY #90 tab 11/10/18 01/19/20 Rx aspirin 81 mg tablet,delayed 81 mg PO DAILY tab 11/25/18 01/19/20 History release indomethacin 25 mg capsule 25 mg PO TID PRN #30 cap 11/25/18 01/19/20 History pen needle, diabetic 32 gauge x See Rx Instructions .ROUTE 12/29/18 01/19/20 Rx 5/32" .COMPLEX #100 unspecified lancets #100 ea 12/30/18 01/19/20 Rx CPAP Machine #1 ea 04/23/19 01/19/20 Rx chlorthalidone 25 mg tablet 25 mg PO DAILY #90 tab 04/24/19 01/19/20 Rx blood sugar diagnostic #300 ea 11/05/19 01/19/20 Rx acetaminophen [Tylenol Extra 1,000 mg PO Q6H PRN 01/19/20 01/19/20 History Strength] atorvastatin 10 mg PO QAM 01/19/20 01/19/20 History glipizide 15 mg PO BID 01/19/20 01/19/20 History ibuprofen [Advil] 400 mg PO Q6H PRN 01/19/20 01/19/20 History insulin glargine U-300 conc 32 unit SUBCUT QPM 01/19/20 01/19/20 History [Toujeo [employer] U-300 Insulin] metformin 1,000 mg PO .BID BUT ON HOLD 01/19/20 01/19/20 History metoprolol succinate 50 mg PO DAILY 01/19/20 01/19/20 History omeprazole 20 mg PO MOWEFR 01/19/20 01/19/20 History Patient History Medical History Diabetes mellitus, type II HLD (hyperlipidemia) HTN (hypertension) MARY on CPAP Surgical History History of surgery on arm LT arm; detached tendon S/P appendectomy S/P thyroid biopsy Family History Other AAA (abdominal aortic aneurysm) Denies family history of Ovarian cancer Prostate cancer Myocardial infarction Breast cancer Colorectal cancer Social History Smoking Status: Never smoker Hx Alcohol Use: No Hx Substance Use: No Preferred Language: [place] Citizen Communication Ability: Effective Microbiology Instructor Required: No Beliefs That Will Affect Care: None marital status: Current Living Situation: Spouse current occupational status: retired Other Information That Helps Us Care for You: No Feels Safe at Home: Yes Safety Concerns: Feels Safe At This Time Dental Care, Regularly: Yes Physical Activity Frequency: Does not Exercise Seatbelt Use: always Sunscreen Use: Yes Assistive Devices: CPAP and Glasses Review of Systems Review of Systems: All systems reviewed & are unremarkable except as noted in HPI & below Physical Exam Constitutional: WD/WN, vitals as above well developed and healthy appearing Eyes: PERRL, conjunctivae normal, anicteric sclerae ENMT: external ear and nose normal, oropharynx normal Neck: Mild erythema of the anterior neck, overlying the sternal notch and extending superiorly. Minimal edema. Respiratory: normal respiratory effort Results & Data ([facility]) Vital Signs (Past 12 Hours) Vital Signs Temp Pulse Pulse Resp BP Pulse Ox 01/20/20 03:41 37 C 63 18 106/62 95 01/20/20 03:13 71 14 96 01/20/20 00:17 84 01/19/20 23:25 78 16 95 01/19/20 23:09 36.7 C 67 16 133/75 96 01/19/20 20:40 36.7 C 82 20 133/71 95
[2020-01-20 08:37] LABS: BUN Creatinine Ratio 12.7 (10-20); Creatinine Clr Calc Pharmacy 52.8 ml/min; Est GFR (African American) 55.2; Est GFR (Non-African American) 47.7; Potassium 3.5 mmol/L (3.5-5.1)
[2020-01-20] MEDS ORDERED: METOPROLOL SUCC 50MG EXT REL TAB PO SCH (09:00)
[2020-01-20] MEDS ORDERED: ATORVASTATIN 10 MG TAB PO SCH (09:00)
[2020-01-20] MEDS ORDERED: PANTOprazole 40 MG TAB PO SCH (09:00)
[2020-01-20] MEDS ORDERED: LOSARTAN POTASSIUM 50 MG TAB PO SCH (09:00)
[2020-01-20] MEDS ORDERED: CHLORTHALIDONE 25 MG TAB PO SCH (09:00)
[2020-01-20] MEDS: INSULIN GLARGINE SOLOSTAR 100 UNITS/ML 3 ML PEN SC SCH ×2 (09:03→20:56)
[2020-01-20] MEDS: INSULIN ASPART 100 UNITS/ML 3 ML PEN SC SCH ×3 (09:04→17:12)
[2020-01-20] MEDS: SODIUM CHLORIDE 0.9% 1000ML 1,000 ML IV SCH ×2 (09:08→19:46)
[2020-01-20 09:37] LABS: Estimated Average Glucose 148 mg/dl; Hemoglobin A1C 6.8 % (4.5-5.6)
[2020-01-20] MEDS ORDERED: PIPERACILLIN/TAZOBACTAM 3.375 GM in DEXTROSE 5% 100 ML IV SCH (14:00)
[2020-01-20 17:17] LABS: Basophils # (auto) 0.02 K/uL (0-0.2); Basophils % (auto) 0.2 %; Hemoglobin 11.3 g/dL (14.0-18.0); Immature Granulocytes # (auto) 0.02 K/uL (0.00-0.02); Immature Granulocytes % (auto) 0.2 %; Lymphocytes # (auto) 1.09 K/uL (1.2-3.4); Lymphocytes % (auto) 9.8 %; Mean Corpuscular Hemoglobin 32.2 pg (25-34); Mean Corpuscular Volume 96.9 fL (80-100); Mean Platelet Volume 10.4 fL (7.4-10.4); Monocytes # (auto) 1.31 K/uL (0.11-0.59); Monocytes % (auto) 11.8 %; Neutrophils # (auto) 8.63 K/uL (1.4-6.5); Platelet Count 188 K/uL (130-400); RDW Coefficient of Variation 13.2 % (11.5-14.5); RDW Standard Deviation 46.6 fL (36.4-46.3); Red Blood Count 3.51 M/uL (4.7-6.1); White Blood Count 11.07 K/uL (4.8-10.8)
[2020-01-20 17:22] LABS: Mean Corpuscular Hgb Conc 33.2 g/dL (32-36)
[2020-01-20 17:39] LABS: Albumin Level 2.9 gm/dl (3.4-5.0); BUN Creatinine Ratio 12.2 (10-20); Bilirubin Direct 0.3 mg/dl (0-0.2); Calcium 8.7 mg/dl (8.5-10.1); Creatinine Clr Calc Pharmacy 49.8 ml/min; Est GFR (African American) 51.4; Est GFR (Non-African American) 44.3; Potassium 3.5 mmol/L (3.5-5.1)
[2020-01-20 17:42] LABS: Albumin Globulin Ratio 0.7 (0.9-2); Bilirubin,Total 0.9 mg/dl (0.2-1); Globulin 4.2 gm/dl (2.5-4.0); Total Protein 7.1 gm/dl (6.4-8.2)
[2020-01-20] MEDS ORDERED: DAPTOmycin 300 MG in SYRINGE 0 ML IV SCH (18:00)
--- NOTE | 2020-01-20 18:01 | Hospitalist Progress Note ---
Date of Service January 20, 2020 Assessment & Plan (1) Hematoma of neck: THYROID HEMATOMA WITH POSSIBLE MEDIASTINITIS Possible sepsis Admitting service notes: This is a 69-year-old male with PMH of type 2 diabetes, sleep apnea on CPAP, HTN and HLD who presents with throat pain and difficulty swallowing since thyroid biopsy 1 week ago. -Ultrasound-guided biopsy of thyroid nodule performed by Dr. Alves on 01/13/20, has since developed pain and difficulty swallowing -Soft tissue neck CT with organized liquefied hematoma surrounding nodule extending into the superior mediastinum and retrosternal tissues. Superimposed infection cannot be excluded -Mild leukocytosis of 12.85. CRP 15.6, ESR 52, procalcitonin normal -No respiratory distress, O2 saturation 99% on room air -Continue IV Zosyn, gentle IV fluids -ENT consult placed. Dr. Alves 01/20/2020 Patient developed fever in the afternoon 38.6, heart rate 90, blood pressure systolic 150s White count 11,000, lactic acid normal Globin from 13---> 11.[address] of the neck without contrast: 1. No significant change from yesterday. 2. Enlarged and heterogeneous thyroid gland with a 3.8 cm dominant nodule centered in the left lobe. 3. Complex fluid and inflammation surrounds the left lobe of the thyroid gland/the dominant nodule and extends into the neck and superior mediastinum as above. This likely represents a small hematoma. The sterility of this collection cannot be related imaging and clinical correlation will be required to evaluate for superimposed infection. 4. The airway is patent. Daptomycin added to Zosyn Blood cultures ordered: Pending- Follow up IV NSS 125 cc/h N.p.o. except medications for possible surgical intervention Discussed with hospitalist Dr. Aguero and [facility] Dr. Hamilton-patient was accepted to [facility] for further evaluation and management (2) Diabetes mellitus, type II: A1c 6.8 -Hold home agents -SSI while in-patient -BSG AC HS (3) HTN (hypertension): Hold chlorthalidone and losartan for component of dehydration Continue metoprolol succinate Elevated creatinine -Likely from dehydration -Baseline 1.3 today 1.4-1.5 -Hold losartan and chlorthalidone -Continue IV fluids Continue to monitor renal function (4) HLD (hyperlipidemia): Continue statin (5) MARY on CPAP: CPAP HS DVT Ppx: SCDs Code status: FULL PCP: Danielito Dispo: Transfer to [facility] Admission and Anticipated Discharge Date Admission Date: January 19, 2020 Subjective Follow-up for thyroid hematoma, with attention to the mediastinum Evaluate in the morning Seen resting in bed, comfortable, not in distress, alert, oriented x3 States he feels about the same as compared to yesterday, mild discomfort in the throat area But does not have any shortness of breath, problems swallowing, headache, dizziness, abdominal pain, nausea vomiting, fevers or chills Plan of care discussed with patient and he verbalized understanding and agreement I informed him I will be monitoring him closely and will recheck on him in the afternoon to check for changes Discussed case with Dr. Alves over the phone in detail Recommend to defer repeat CT scan unless patient has changes in status and continue IV Zosyn with close observation Informed by RN that patient had a fever 38 point 6 in the afternoon Seen at the bedside, patient is not in distress, alert, oriented x3 States he feels weaker, also has increased pain around the throat region, but still has no shortness of breath or dysphagia Denies chest pain, headache, dizziness, nausea vomiting Stat CT chest ordered with stat labs including CBC, CMP, lactic acid, blood cultures Daptomycin also added to Zosyn Discussed case with Dr. Alves, he recommends transferring the patient to [facility] for evaluation and treatment, possible surgical intervention Patient updated about the [id number] 3 times in the afternoon and through the evening, also relayed results of lab tests Patient's daughters updated over the phone twice, plan of care discussed in detail and at length All questions were answered They are understanding, agreeable, comfortable plan of care Review of Systems Review of Systems: All systems reviewed & are unremarkable except as noted in Subjective Physical Exam Physical Exam: General- oriented x 3, not in distress, speaks in sentences with no effort or accessory muscle use Head- atraumatic Eyes- PERRL, EOMI, anicteric ENT- oropharynx clear Neck- supple, no JVD, no adenopathy, no trismus Mild edema over the anterior neck region, with mild erythema of the center of the neck, radiating to the lower neck region Lungs- clear to auscultation bilaterally, no rales/wheezes Heart- normal rate, regular rhythm; no murmur, no gallop, no rub appreciated Abdomen- normal bowel sounds, nondistended, soft, nontender, no masses or hepatosplenomegaly Extremities- no pretibial edema, no calf tenderness; peripheral pulses intact Neuro- alert, oriented x 3; CN 2-12 grossly intact; motor 5/5 bilaterally;sensation 100% on all extremities; no other gross focal neurologic deficits Skin- warm & dry Results & Data Results & Data ([facility]) Vital Signs (Past 12 Hours) Vital Signs Temp Pulse Pulse Resp BP Pulse Ox 01/20/20 17:16 37.9 C H 01/20/20 16:00 88 01/20/20 15:36 38.6 C H 90 16 151/72 H 95 01/20/20 12:15 36.8 C 88 18 117/68 91 01/20/20 08:55 36.7 C 89 16 147/70 H 95 01/20/20 07:55 83 Laboratory Results Laboratory Results - last 24 hr 01/19/20 01/19/20 01/20/20 15:20 21:36 07:26 WBC 10.32 RBC 3.77 L Hgb 12.2 L Hct 36.9 L MCV 97.9 MCH 32.4 MCHC 33.1 RDW Std Deviation 47.2 H RDW Coeff of Natalie 13.2 Plt Count 187 MPV 11.1 H Immature Gran % (Auto) Neut % (Auto) Lymph % (Auto) Kimball % (Auto) Eos % (Auto) Baso % (Auto) Neut # (Auto) Lymph # (Auto) Kimball # (Auto) Eos # (Auto) Baso # (Auto) Immature Gran # (Auto) Sodium Potassium Chloride Carbon Dioxide Anion Gap BUN Creatinine Est Cr Clr Drug Dosing Est GFR ( Amer) Est GFR (Non-Af Amer) BUN/Creatinine Ratio Glucose POC Glucose 132 H Estimat Average Glucose Hemoglobin A1c Lactate Calcium Total Bilirubin Direct Bilirubin AST ALT Alkaline Phosphatase Total Protein Albumin Globulin Albumin/Globulin Ratio Adenovirus (PCR) B. pertussis DNA (PCR) B.parapertussis DNA PCR C. pneumoniae DNA (PCR) Coronavirus OC43 (PCR) Coronavirus HKU1 (PCR) Coronavirus 229E (PCR) COVID-19 Eval Order COVID-19 PCR Nasopharyn COVID-19 PCR Coronavirus NL63 (PCR) Hepatitis C Ab Screen Neg Human Metapneumovir PCR Influenza Type A (PCR) Influenza Type B (PCR) M. pneumoniae (PCR) Parainfluenza 1 (PCR) Parainfluenza 2 (PCR) Parainfluenza 3 (PCR) Parainfluenza 4 (PCR) RSV (PCR) Entero/Rhino (PCR) SARS-CoV-2, RNA, NAAT 01/20/20 01/20/20 01/20/20 07:26 07:26 08:05 WBC RBC Hgb Hct MCV MCH MCHC RDW Std Deviation RDW Coeff of Natalie Plt Count MPV Immature Gran % (Auto) Neut % (Auto) Lymph % (Auto) Kimball % (Auto) Eos % (Auto) Baso % (Auto) Neut # (Auto) Lymph # (Auto) Kimball # (Auto) Eos # (Auto) Baso # (Auto) Immature Gran # (Auto) Sodium 140 Potassium 3.5 Chloride 104 Carbon Dioxide 29 Anion Gap 7.0 BUN 19 H Creatinine 1.47 H Est Cr Clr Drug Dosing 52.8 Est GFR ( Amer) 55.2 Est GFR (Non-Af Amer) 47.7 BUN/Creatinine Ratio 12.7 Glucose 104 H POC Glucose 118 H Estimat Average Glucose 148 Hemoglobin A1c 6.8 H Lactate Calcium 9.0 Total Bilirubin Direct Bilirubin AST ALT Alkaline Phosphatase Total Protein Albumin Globulin Albumin/Globulin Ratio Adenovirus (PCR) B. pertussis DNA (PCR) B.parapertussis DNA PCR C. pneumoniae DNA (PCR) Coronavirus OC43 (PCR) Coronavirus HKU1 (PCR) Coronavirus 229E (PCR) COVID-19 Eval Order COVID-19 PCR Nasopharyn COVID-19 PCR Coronavirus NL63 (PCR) Hepatitis C Ab Screen Human Metapneumovir PCR Influenza Type A (PCR) Influenza Type B (PCR) M. pneumoniae (PCR) Parainfluenza 1 (PCR) Parainfluenza 2 (PCR) Parainfluenza 3 (PCR) Parainfluenza 4 (PCR) RSV (PCR) Entero/Rhino (PCR) SARS-CoV-2, RNA, NAAT 01/20/20 01/20/20 01/20/20 11:37 16:35 17:00 WBC RBC Hgb Hct MCV MCH MCHC RDW Std Deviation RDW Coeff of Natalie Plt Count MPV Immature Gran % (Auto) Neut % (Auto) Lymph % (Auto) Kimball % (Auto) Eos % (Auto) Baso % (Auto) Neut # (Auto) Lymph # (Auto) Kimball # (Auto) Eos # (Auto) Baso # (Auto) Immature Gran # (Auto) Sodium Potassium Chloride Carbon Dioxide Anion Gap BUN Creatinine Est Cr Clr Drug Dosing Est GFR ( Amer) Est GFR (Non-Af Amer) BUN/Creatinine Ratio Glucose POC Glucose 103 H 141 H Estimat Average Glucose Hemoglobin A1c Lactate Calcium Total Bilirubin Direct Bilirubin AST ALT Alkaline Phosphatase Total Protein Albumin Globulin Albumin/Globulin Ratio Adenovirus (PCR) B. pertussis DNA (PCR) B.parapertussis DNA PCR C. pneumoniae DNA (PCR) Coronavirus OC43 (PCR) Coronavirus HKU1 (PCR) Coronavirus 229E (PCR) COVID-19 Eval Order Covid19 Sent to [facility] COVID-19 PCR Nasopharyn COVID-19 PCR Coronavirus NL63 (PCR) Hepatitis C Ab Screen Human Metapneumovir PCR Influenza Type A (PCR) Influenza Type B (PCR) M. pneumoniae (PCR) Parainfluenza 1 (PCR) Parainfluenza 2 (PCR) Parainfluenza 3 (PCR) Parainfluenza 4 (PCR) RSV (PCR) Entero/Rhino (PCR) SARS-CoV-2, RNA, NAAT 01/20/20 01/20/20 01/20/20 17:00 17:00 17:02 WBC 11.07 H RBC 3.51 L Hgb 11.3 L Hct 34.0 L MCV 96.9 MCH 32.2 MCHC 33.2 RDW Std Deviation 46.6 H RDW Coeff of Natalie 13.2 Plt Count 188 MPV 10.4 Immature Gran % (Auto) 0.2 Neut % (Auto) 78.0 Lymph % (Auto) 9.8 Kimball % (Auto) 11.8 Eos % (Auto) 0.0 Baso % (Auto) 0.2 Neut # (Auto) 8.63 H Lymph # (Auto) 1.09 L Kimball # (Auto) 1.31 H Eos # (Auto) 0.00 Baso # (Auto) 0.02 Immature Gran # (Auto) 0.02 Sodium Potassium Chloride Carbon Dioxide Anion Gap BUN Creatinine Est Cr Clr Drug Dosing Est GFR ( Amer) Est GFR (Non-Af Amer) BUN/Creatinine Ratio Glucose POC Glucose Estimat Average Glucose Hemoglobin A1c Lactate Calcium Total Bilirubin Direct Bilirubin AST ALT Alkaline Phosphatase Total Protein Albumin Globulin Albumin/Globulin Ratio Adenovirus (PCR) Not Detected B. pertussis DNA (PCR) Not Detected B.parapertussis DNA PCR Not Detected C. pneumoniae DNA (PCR) Not Detected Coronavirus OC43 (PCR) Not Detected Coronavirus HKU1 (PCR) Not Detected Coronavirus 229E (PCR) Not Detected COVID-19 Eval Order COVID-19 PCR Not Detected Nasopharyn COVID-19 PCR Cancelled Coronavirus NL63 (PCR) Not Detected Hepatitis C Ab Screen Human Metapneumovir PCR Not Detected Influenza Type A (PCR) Not Detected Influenza Type B (PCR) Not Detected M. pneumoniae (PCR) Not Detected Parainfluenza 1 (PCR) Not Detected Parainfluenza 2 (PCR) Not Detected Parainfluenza 3 (PCR) Not Detected Parainfluenza 4 (PCR) Not Detected RSV (PCR) Not Detected Entero/Rhino (PCR) Not Detected SARS-CoV-2, RNA, NAAT 01/20/20 01/20/20 01/20/20 17:02 17:02 18:05 WBC RBC Hgb Hct MCV MCH MCHC RDW Std Deviation RDW Coeff of Natalie Plt Count MPV Immature Gran % (Auto) Neut % (Auto) Lymph % (Auto) Kimball % (Auto) Eos % (Auto) Baso % (Auto) Neut # (Auto) Lymph # (Auto) Kimball # (Auto) Eos # (Auto) Baso # (Auto) Immature Gran # (Auto) Sodium 139 Potassium 3.5 Chloride 102 Carbon Dioxide 28 Anion Gap 8.0 BUN 19 H Creatinine 1.56 H Est Cr Clr Drug Dosing 49.8 Est GFR ( Amer) 51.4 Est GFR (Non-Af Amer) 44.3 BUN/Creatinine Ratio 12.2 Glucose 138 H POC Glucose Estimat Average Glucose Hemoglobin A1c Lactate 1.3 Calcium 8.7 Total Bilirubin 0.9 Direct Bilirubin 0.3 H AST 13 L ALT 17 Alkaline Phosphatase 37 L Total Protein 7.1 Albumin 2.9 L Globulin 4.2 H Albumin/Globulin Ratio 0.7 L Adenovirus (PCR) B. pertussis DNA (PCR) B.parapertussis DNA PCR C. pneumoniae DNA (PCR) Coronavirus OC43 (PCR) Coronavirus HKU1 (PCR) Coronavirus 229E (PCR) COVID-19 Eval [facility] COVID-[facility] PCR Nasopharyn COVID-19 PCR Coronavirus NL63 (PCR) Hepatitis C Ab Screen Human Metapneumovir PCR Influenza Type A (PCR) Influenza Type B (PCR) M. pneumoniae (PCR) Parainfluenza 1 (PCR) Parainfluenza 2 (PCR) Parainfluenza 3 (PCR) Parainfluenza 4 (PCR) RSV (PCR) Entero/Rhino (PCR) SARS-CoV-2, RNA, NAAT 01/20/20 18:05 WBC RBC Hgb Hct MCV MCH MCHC RDW Std Deviation RDW Coeff of Natalie Plt Count MPV Immature Gran % (Auto) Neut % (Auto) Lymph % (Auto) Kimball % (Auto) Eos % (Auto) Baso % (Auto) Neut # (Auto) Lymph # (Auto) Kimball # (Auto) Eos # (Auto) Baso # (Auto) Immature Gran # (Auto) Sodium Potassium Chloride Carbon Dioxide Anion Gap BUN Creatinine Est Cr Clr Drug Dosing Est GFR ( Amer) Est GFR (Non-Af Amer) BUN/Creatinine Ratio Glucose POC Glucose Estimat Average Glucose Hemoglobin A1c Lactate Calcium Total Bilirubin Direct Bilirubin AST ALT Alkaline Phosphatase Total Protein Albumin Globulin Albumin/Globulin Ratio Adenovirus (PCR) B. pertussis DNA (PCR) B.parapertussis DNA PCR C. pneumoniae DNA (PCR) Coronavirus OC43 (PCR) Coronavirus HKU1 (PCR) Coronavirus 229E (PCR) COVID-19 Eval Order COVID-19 PCR Nasopharyn COVID-19 PCR Coronavirus NL63 (PCR) Hepatitis C Ab Screen Human Metapneumovir PCR Influenza Type A (PCR) Influenza Type B (PCR) M. pneumoniae (PCR) Parainfluenza 1 (PCR) Parainfluenza 2 (PCR) Parainfluenza 3 (PCR) Parainfluenza 4 (PCR) RSV (PCR) Entero/Rhino (PCR) SARS-CoV-2, RNA, NAAT Cancelled
--- NOTE | 2020-01-20 18:23 | CT Scan Report ---
CT SCAN OF THE NECK WITHOUT IV CONTRAST CLINICAL HISTORY: Neck swelling. Erythema. Hematoma. COMPARISON STUDY: CT of the neck dated 01/19/2020. TECHNIQUE: Unenhanced CT scan of the soft tissues of the neck was performed from the skull base to th e upper chest. Images are reviewed in the axial, sagittal, and coronal planes. IV contrast was not a dministered as per the referring clinician. Note that the examination was performed in suboptimal fas hion without IV contrast. A dose lowering technique was utilized adhering to the principles of ALARA. CT DOSE: 485.42 mGy.cm FINDINGS: Pharynx: There is minimal rightward deviation of the trachea. There is mild infiltration of the left parapharyngeal fat. The right parapharyngeal fat is normal in appearance. The pharyngeal airway is wi derick patent. There is no evidence of mass lesion. The vocal cords are symmetric. The epiglottis is no rmal. The prevertebral/retropharyngeal soft tissues are within normal limits. Lymphadenopathy: Prominent left cervical chain lymph nodes measure up to 11 mm in length. These are n ot pathologically enlarged by size criteria. A prominent right paratracheal node in the superior medi astinum measures 7 mm in short axis. Thyroid: The thyroid gland is enlarged and heterogeneous, and extends in the superior mediastinum. A 3.8 cm low-attenuation nodule is again seen in the left lobe and isthmus. Complex fluid and inflammat ion is again seen around the thyroid gland/nodule. This has not significantly changed from yesterday, and measures 3.5 x 3.3 x 1.7 cm as seen on image #265 (measured 3.4 x 1.6 x 4.8 cm at a similar leve l on yesterday's examination). Complex fluid extends extends into the superior mediastinum and retros ternal tissues. This also extends superiorly along the carotid sheath. Salivary glands: The parotid and submandibular glands are within normal limits. Brain parenchyma: The visualized brain parenchyma at the skull base is normal in appearance. Skeletal structures: The skeletal structures are osteopenic. Imaged portions of the calvarium at the skull base are within normal limits. The cervical spine appears intact noting multilevel spondylosis. No lytic or blastic lesion is seen. Orbits: The bony orbits are intact. There is mild bilateral proptosis. Orbital contents are otherwise normal as imaged. Sinuses and mastoids: Trace mucosal thickening is seen in the right maxillary antrum, the sphenoid si nuses, and the ethmoid sinuses. The mastoid air cells are well pneumatized. Lung apices: Visualized apical lung parenchyma is clear. IMPRESSION: 1. No significant change from yesterday. 2. Enlarged and heterogeneous thyroid gland with a 3.8 cm dominant nodule centered in the left lobe. 3. Complex fluid and inflammation surrounds the left lobe of the thyroid gland/the dominant nodule an d extends into the neck and superior mediastinum as above. This likely represents a small hematoma. T he sterility of this collection cannot be related imaging and clinical correlation will be required t o evaluate for superimposed infection. 4. The airway is patent. ACT 112: Negative or not required by law. Electronically signed by: Frederick Caldera M.D. 01/20/2020 6:22 PM
[2020-01-20 18:35] LABS: Adenovirus PCR Not Detected (NotDetected); Bordetella parapertussis PCR Not Detected (NotDetected); Bordetella pertussis PCR Not Detected (NotDetected); Chlamydia pneumoniae PCR Not Detected (NotDetected); Coronavirus 229E PCR Not Detected (NotDetected); Coronavirus CoV-2 (COVID19)PCR Not Detected (NotDetected); Coronavirus HKU1 PCR Not Detected (NotDetected); Coronavirus NL63 PCR Not Detected (NotDetected); Coronavirus OC43PCR Not Detected (NotDetected); Human Metapneumovirus PCR Not Detected (NotDetected); Influenza A PCR Not Detected (NotDetected); Influenza B PCR Not Detected (NotDetected); Mycoplasma pneumoniae PCR Not Detected (NotDetected); Parainfluenza Virus 1 PCR Not Detected (NotDetected); Parainfluenza Virus 2 PCR Not Detected (NotDetected); Parainfluenza Virus 3 PCR Not Detected (NotDetected); Parainfluenza Virus 4 PCR Not Detected (NotDetected); Respiratory Syncytial VirusPCR Not Detected (NotDetected); Rhinovirus/Enterovirus PCR Not Detected (NotDetected)
--- NOTE | 2020-01-20 20:02 | Discharge Summary ---
Date of Service January 20, 2020 Admission HPI Per Admitting Provider This is a 69-year-old male with PMH of type 2 diabetes, sleep apnea on CPAP, HTN and HLD who presents with throat pain and difficulty swallowing since thyroid biopsy 1 week ago. Patient underwent ultrasound-guided biopsy of thyroid nodule performed by Dr. Alves on 01/13/20. A few days later, patient developed a full feeling around thyroid and painful swallowing. Describes pain as "external pressure on esophagus" that makes it painful and slightly difficult to swallow, although he has been able to tolerate soft solid foods without issue. Denies any difficulty breathing or respiratory distress. Has a pulse ox at home that he has been using and has maintained 100% oxygen saturation. Pain has persisted, so called ENT office today and first prescribed Augmentin course but then was directed to come to ED for further evaluation. Endorses a low-grade fever usually around 99 F but as high as 100 F once yesterday. Had 1 bout of chills and diarrhea on Saturday that have not recurred. Has had some pressure in ears and mild headache. Denies any visual changes, lightheadedness, cough, chest pain, shortness of breath, wheezing, nausea, vomiting, abdominal pain, dysuria. In ED, patient is afebrile and hemodynamically stable. Mild leukocytosis of 12.85. CRP 15.6, ESR 52, procalcitonin pending. Would screen negative. Soft tissue neck CT with 3.5 x 2.3 cm nodule of inferior left thyroid lobe with organized liquefied hematoma surrounding nodule extending into the superior mediastinum and retrosternal tissues. Superimposed infection cannot be excluded. ED provider discussed case with ENT Dr. Alves, who recommended patient be admitted for continuation of IV antibiotics and ENT consult. Admission Exam Per Admitting Provider General Appearance: WD/WN, vitals as above, NAD, sitting up in bed, pleasant, conversing easily Head: normocephalic, atraumatic Eyes: normal inspection, PERRL, conjunctivae normal, anicteric sclerae ENT: external ear and nose normal, oropharynx normal, bilateral TMs pearly burr, light reflex and bony landmarks present bilaterally Neck: normal visual inspection, trachea midline, thyroid TTP with mild edema and erythema, no warmth Respiratory: normal respiratory effort, lungs clear to auscultation, no wheeze, rales, rhonchi. No respiratory distress Cardiovascular: regular rate, rhythm, no murmur, normal peripheral pulses, no BLE edema. Vessels: no JVD Chest: normal inspection of chest Abdomen/GI: normal bowel sounds, soft, nontender, no hepatosplenomegaly Extremities/Musculoskeletal: no cyanosis or clubbing, extremities motor strength 5/5 Neurologic: PERRL, EOMI, accommodation nl, no face palsy, no dysarthria, CN's II-XI intact bilaterally and moves all extremities Psychiatric: A+Ox3, euthymic affect Skin: no rashes, normal color, warm/dry Principal Diagnosis Thyroid gland hematoma, possible mediastinitis, rule out sepsis Discharge Exam General- oriented x 3, not in distress, speaks in sentences with no effort or accessory muscle use Head- atraumatic Eyes- PERRL, EOMI, anicteric ENT- oropharynx clear Neck- supple, no JVD, no adenopathy, no trismus Mild edema over the anterior neck region, with mild erythema of the center of the neck, radiating to the lower neck region Lungs- clear to auscultation bilaterally, no rales/wheezes Heart- normal rate, regular rhythm; no murmur, no gallop, no rub appreciated Abdomen- normal bowel sounds, nondistended, soft, nontender, no masses or hepatosplenomegaly Extremities- no pretibial edema, no calf tenderness; peripheral pulses intact Neuro- alert, oriented x 3; CN 2-12 grossly intact; motor 5/5 bilat erally;sensation 100% on all extremities; no other gross focal neurologic deficits Skin- warm & dry Discharge Data Allergies Allergy/AdvReac Type Severity Reaction Status Date / Time No Known Allergies Allergy Verified 01/19/20 19:35 Consultations 01/19/20 17:51 ED Decision to Admit Stat 01/19/20 20:31 Consult Otolaryngology (Head and Neck) Routine 01/20/20 19:22 Burn CD for patient Stat Ordered Studies 01/19/20 15:03 CT soft tissue neck w con Stat FINDINGS: The imaged intracranial structures appear unremarkable. Streak artifact from dental amalgam hardware. Patent airway. Large left inferior thyroid nodule measures 3.5 x 2.3 cm, slightly increased in size from 10/14/2019 study. A liquefying hematoma is noted surrounding the nodule which measures approximately 3.4 x 1.6 x 4.8 cm with ill-defined margins and extends into the upper mediastinum and retrosternal tissues. Prominent nonenlarged 7 mm lymph node of the right tracheoesophageal recess. No pathologically enlarged lymph nodes. The parotid and submandibular glands are unremarkable. Mild anterior neck subcutaneous edema. The lung apices are clear without pneumothorax. There is mild nonspecific wall thickening of the proximal esophagus. Vascular structures of the neck appear unremarkable. IMPRESSION: 1. 3.5 x 2.3 cm nodule of the inferior left thyroid lobe. 2. Organizing liquefied hematoma surrounds the nodule and extends into the superior mediastinum and retrosternal tissues as above. Superimposed infection cannot be excluded from imaging alone. 01/20/20 16:47 CT soft tissue neck wo con Stat FINDINGS: Pharynx: There is minimal rightward deviation of the trachea. There is mild infiltration of the left parapharyngeal fat. The right parapharyngeal fat is normal in appearance. The pharyngeal airway is widely patent. There is no evidence of mass lesion. The vocal cords are symmetric. The epiglottis is normal. The prevertebral/retropharyngeal soft tissues are within normal limits. Lymphadenopathy: Prominent left cervical chain lymph nodes measure up to 11 mm in length. These are not pathologically enlarged by size criteria. A prominent right paratracheal node in the superior mediastinum measures 7 mm in short axis. Thyroid: The thyroid gland is enlarged and heterogeneous, and extends in the superior mediastinum. A 3.8 cm low-attenuation nodule is again seen in the left lobe and isthmus. Complex fluid and inflammation is again seen around the thyroid gland/nodule. This has not significantly changed from yesterday, and measures 3.5 x 3.3 x 1.7 cm as seen on image #265 (measured 3.4 x 1.6 x 4.8 cm at a similar level on yesterday's examination). Complex fluid extends extends into the superior mediastinum and retrosternal tissues. This also extends superiorly along the carotid sheath. Salivary glands: The parotid and submandibular glands are within normal limits. Brain parenchyma: The visualized brain parenchyma at the skull base is normal in appearance. Skeletal structures: The skeletal structures are osteopenic. Imaged portions of the calvarium at the skull base are within normal limits. The cervical spine appears intact noting multilevel spondylosis. No lytic or blastic lesion is seen. Orbits: The bony orbits are intact. There is mild bilateral proptosis. Orbital contents are otherwise normal as imaged. Sinuses and mastoids: Trace mucosal thickening is seen in the right maxillary antrum, the sphenoid sinuses, and the ethmoid sinuses. The mastoid air cells are well pneumatized. Lung apices: Visualized apical lung parenchyma is clear. IMPRESSION: 1. No significant change from yesterday. 2. Enlarged and heterogeneous thyroid gland with a 3.8 cm dominant nodule centered in the left lobe. 3. Complex fluid and inflammation surrounds the left lobe of the thyroid gland/the dominant nodule and extends into the neck and superior mediastinum as above. This likely represents a small hematoma. The sterility of this collection cannot be related imaging and clinical correlation will be required to evaluate for superimposed infection. 4. The airway is patent. Hospital Course (1) Hematoma of neck: THYROID HEMATOMA WITH POSSIBLE MEDIASTINITIS Possible sepsis Admitting service notes: This is a 69-year-old male with PMH of type 2 diabetes, sleep apnea on CPAP, HTN and HLD who presents with throat pain and difficulty swallowing since thyroid biopsy 1 week ago. -Ultrasound-guided biopsy of thyroid nodule performed by Dr. Alves on 01/13/20, has since developed pain and difficulty swallowing -Soft tissue neck CT with organized liquefied hematoma surrounding nodule extending into the superior mediastinum and retrosternal tissues. Superimposed infection cannot be excluded -Mild leukocytosis of 12.85. CRP 15.6, ESR 52, procalcitonin normal -No respiratory distress, O2 saturation 99% on room air -Continue IV Zosyn, gentle IV fluids -ENT consult placed. Dr. Alves 01/20/2020 Patient developed fever in the afternoon 38.6, heart rate 90, blood pressure systolic 150s Increased neck pain White count 11,000, lactic acid normal HemoGlobin from 13---> 11.[address] of the neck without contrast: 1. No significant change from yesterday. 2. Enlarged and heterogeneous thyroid gland with a 3.8 cm dominant nodule centered in the left lobe. 3. Complex fluid and inflammation surrounds the left lobe of the thyroid gland/the dominant nodule and extends into the neck and superior mediastinum as above. This likely represents a small hematoma. The sterility of this collection cannot be related imaging and clinical correlation will be required to evaluate for superimposed infection. 4. The airway is patent. Daptomycin added to Zosyn Blood cultures ordered: Pending- Follow up IV NSS 125 cc/h N.p.o. except medications for possible surgical intervention Discussed with hospitalist Dr. Aguero and [facility] ENT Dr. Hamilton-patient was accepted to [facility] for further evaluation and management (2) Diabetes mellitus, type II: A1c 6.8 -Hold home agents -SSI while in-patient -BSG AC HS (3) HTN (hypertension): Hold chlorthalidone and losartan for component of dehydration Continue metoprolol succinate Elevated creatinine -Likely from dehydration -Baseline 1.3 today 1.4-1.5 -Hold losartan and chlorthalidone -Continue IV fluids Continue to monitor renal function (4) HLD (hyperlipidemia): Continue statin (5) MARY on CPAP: CPAP HS DVT Ppx: SCDs Code status: FULL PCP: Danielito Dispo: Transfer to [facility] Total Time Total Time Spent Total Time Spent (In Minutes): 90 minutes Discharge Plan Discharge Items Reason For Visit: THYROID NODULE HEMATOMA Follow-up/Referrals: Haley Esteves MD [Primary Care Provider] - Medications and DC Order Prescriptions: No Action losartan 100 mg tablet 100 mg PO DAILY Qty: 90 RF: 3 pen needle, diabetic [BD Ultra-Fine Patti Pen Needle] 32 gauge x 5/32" needle See Rx Instructions .ROUTE .COMPLEX Qty: 100 RF: 3 (DME) lancets [OneTouch UltraSoft Lancets] misc See Rx Instructions .ROUTE .MEDSUPPLY Qty: 100 RF: 2 chlorthalidone 25 mg tablet 25 mg PO DAILY Qty: 90 RF: 1 (DME) OneTouch Ultra Blue Test Strip Strip See Dose Instructions .ROUTE .MEDSUPPLY Qty: 300 RF: 1 aspirin 81 mg tablet,delayed release (DR/EC) 81 mg PO DAILY RF: 0 indomethacin 25 mg capsule 25 mg PO TID PRN (Reason: gout) Qty: 30 RF: 0 (DME) CPAP Machine Misc See Rx Instructions .ROUTE .MEDSUPPLY Qty: 1 RF: 0 acetaminophen [Tylenol Extra Strength] 500 mg Tablet 1,000 mg PO Q6H PRN (Reason: Pain) RF: 0 ibuprofen [Advil] 200 mg Tablet 400 mg PO Q6H PRN (Reason: Pain) RF: 0 atorvastatin 10 mg tablet 10 mg PO QAM RF: 0 metoprolol succinate 50 mg tablet extended release 24 hr 50 mg PO DAILY RF: 0 glipizide 10 mg tablet extended release 24hr 15 mg PO BID RF: 0 omeprazole 20 mg capsule,delayed release(DR/EC) 20 mg PO MOWEFR RF: 0 metformin 500 mg tablet extended release 24 hr 1,000 mg PO .BID BUT ON HOLD RF: 0 Toujeo SoloStar U-300 Insulin 300 unit/mL (1.5 mL) insulin pen 32 unit subcut QPM RF: 0 Krames/Other Patient Handouts: Managing Type 2 Diabetes Admission Data Admit Date/Time: 01/19/20 18:56 Attending Provider: Lyndon Hamilton Admit Provider: William Drake Primary Care Provider: Haley Esteves Other Providers: William Drake ; Mando Alves
--- NOTE | 2020-01-28 11:56 | Coding Query ---
PRESENT ON ADMISSION QUERY To promote full compliance with coding requirements relating to pateint care, physician participation is requested in all cases of mastic man uncertainty. Please assist us with the question(s) below: Please place an X within the parenthesis (x). The following diagnosis(es) listed in this patient's medical record require physician assistance to determine if they were present on admission (POA) or not. Please advise for each diagnosis whether it was present on admission, not present on admission, or if it was clinically undetermined. 1. Possible Sepsis (documentation begins on 01/20/20) ( ) Present On Admission ( X) Not Present On Admission ( ) Clinically Undetermined 2. Possible Mediastinitis (documentation begins on 01/20/20) ( X) Present On Admission ( ) Not Present On Admission ( ) Clinically Undetermined Thank you Linh Garrett *Definition of the present on admission (POA)-Present on admission is defined as present at the time the order for inpatient admission occurs. Conditions that develop during an outpatient encounter prior to a written order for inpatient admission (including emergency department, observation, or outpatient surgery) are considered present on admission. CASSIE
--- NOTE | 2020-01-28 12:03 | Coding Query ---
CODING QUERY To promote full compliance with coding requirements relating to patient care, provider participation is requested in all cases of audio visual project manager uncertainty. Please assist us with the question(s) below: Coding Question(s): Possible Sepsis is documented. Please specify below, in your clinical opinion, regarding the most likely etiology of the Sepsis. ( ) Sepsis with most likely etiology of Possible Postoperative Infection. Please specify further regarding infection: ( ) Mediastinitis - possible postoperative infection ( ) Other possible postoperative Infection: Please Specify ( ) Unknown possible postoperative infection ( ) Sepsis with most likely etiology of Infection that is Not Postoperative Complication ( ) Mediastinitis - Not postoperative infection ( ) Other Infection - Not postoperative infection: Please Specify ( ) Unknown Infection - Not postoperative ( ) Sepsis with most likely etiology Other: Please Specify ( ) Sepsis with Unknown likely etiology Physician's Response(s): Possible Sepsis secondary to mediastinitis Thank you Linh Garrett Principal Diagnosis: "that condition established after study, to be chiefly responsible for occasioning the admission of the patient to the hospital for care." Co-Existing Principal Diagnosis: "when two or more diagnoses equally meet the criteria for principal diagnosis as determined by the circumstances of admission, diagnostic work up, and/or therapy provided, and the Alphabetic Index, Tabular List, or another coding guideline does not provide sequencing direction, any one of the diagnoses may be sequenced first." "When the physician has documented what appears to be a current diagnosis in the body of the record, but has not included the diagnosis in the final diagnostic statement, the physician should be asked whether the diagnosis should be added." ([facility] 2 QTR90. p3-4) CASSIE
--- NOTE | 2020-02-22 08:36 | Coding Query ---
CODING QUERY To promote full compliance with coding requirements relating to patient care, provider participation is requested in all cases of brush stainer uncertainty. Please assist us with the question(s) below: Coding Question(s): Mediastinitis is documented in the record. Please specify below, in your clinical opinion, regarding the Mediastinitis. ( ) Mediastinitis is likely a complication of postoperative infection ( ) Mediastinitis is Not a postoperative complication ( X ) Mediastinitis is Other: Please Specify patient did not have mediastinitis, had thyroid nodule hematoma. thanks Physician's Response(s): Thank you Linh Garrett Principal Diagnosis: "that condition established after study, to be chiefly responsible for occasioning the admission of the patient to the hospital for care." Co-Existing Principal Diagnosis: "when two or more diagnoses equally meet the criteria for principal diagnosis as determined by the circumstances of admission, diagnostic work up, and/or therapy provided, and the Alphabetic Index, Tabular List, or another coding guideline does not provide sequencing direction, any one of the diagnoses may be sequenced first." "When the physician has documented what appears to be a current diagnosis in the body of the record, but has not included the diagnosis in the final diagnostic statement, the physician should be asked whether the diagnosis should be added." ([facility] 2 QTR90. p3-4) CASSIE
--- NOTE | 2020-03-15 08:11 | Coding Query ---
CODING QUERY To promote full compliance with coding requirements relating to patient care, provider participation is requested in all cases of regional tanker truck driver uncertainty. Please assist us with the question(s) below: Coding Question(s): Mediastinitis is documented in the record. Please specify below, in your clinical opinion, regarding the Mediastinitis. ( ) Mediastinitis is likely a complication of postoperative infection ( ) Mediastinitis is Not a postoperative complication ( x ) Mediastinitis is Other: Please Specify__per Dr. Mando Gill: ENT patient did not have mediastinitis, had thyroid nodule hematoma. Physician's Response(s): Thank you Linh Garrett Principal Diagnosis: "that condition established after study, to be chiefly responsible for occasioning the admission of the patient to the hospital for care." Co-Existing Principal Diagnosis: "when two or more diagnoses equally meet the criteria for principal diagnosis as determined by the circumstances of admission, diagnostic work up, and/or therapy provided, and the Alphabetic Index, Tabular List, or another coding guideline does not provide sequencing direction, any one of the diagnoses may be sequenced first." "When the physician has documented what appears to be a current diagnosis in the body of the record, but has not included the diagnosis in the final diagnostic statement, the physician should be asked whether the diagnosis should be added." ([facility] 2 QTR90. p3-4) CASSIE
== END 2020-01-20 21:33 | disposition short-term general hospital (02) | DRG 919 ==
LOC: ED 14:33 → SUATTDRO 18:56 → INTOOBSV 18:56 → 2S 18:56